=== PATIENT | female | born 1950 | race Caucasian/White ===

== ENCOUNTER 2016-08-18 03:23 | Emergency (ER) | payer OTHER, SELFPAY ==
[2016-08-18] MEDS ORDERED: Sodium Chloride 0.9% 1000 ML 1,000 ML IV STA (04:04)
--- NOTE | 2016-08-18 04:09 | ERPHSYRPT ---
- History of Present Illness Time Seen by Provider: 08/18/16 03:59 Historian: patient Exam Limitations: no limitations Patient Subjective Stated Complaint: pt states she is having sharp pain in epigastric area and to midback. Triage Nursing Assessment: pt alert and oriented. answers questions approp. pt ambulatory with steady gait noted. skin pink warm and dry. respirations nonlabored with lungs cta. abd soft with bowel sounds in all 4 quad. Physician History: PT ATE FRIED CHICKEN ABOUT 9.5 HOURS AGO AND 4.5 HOURS AGO STARTED WITH SHARP EPIGASTRIC PAIN RADIATING TO THE BACK WITH NAUSEA AND DIARRHEA X1. PT DENIES SHORTNESS OF AIR, FEVER, RASH. Allergies/Adverse Reactions: Penicillins Allergy (Verified 01/13/12 11:06) Home Medications: Albuterol Sulfate [Ventolin Hfa] 8 gm IH Q4HPRN PRN 08/18/16 [History] Aspirin 81 mg PO DAILY 08/18/16 [History] Citalopram Hydrobromide [ceLEXa] 40 mg PO DAILY 08/18/16 [History] Metformin HCl 500 mg [Glucophage 500 MG] 500 mg PO BID 08/18/16 [History] Metoprolol Succinate 100 mg PO DAILY 08/18/16 [History] Simvastatin 10 mg PO HS 08/18/16 [History] Spironolactone 25 mg [Aldactone 25 MG] 25 mg PO BID 08/18/16 [History] Hx Tetanus, Diphtheria Vaccination/Date Given: Yes Hx Influenza Vaccination/Date Given: Yes Hx Pneumococcal Vaccination/Date Given: No Immunizations Up to Date: Yes - Review of Systems Constitutional: No Fever Respiratory: No Dyspnea Abdominal/Gastrointestinal: Abdominal Pain, Nausea, Diarrhea, No Vomiting Musculoskeletal: Back Pain Skin: No Rash All Other Systems: Reviewed and Negative - Past Medical History Pertinent Past Medical History: Yes Cardiac History: Hypertension Endocrine Medical History: Diabetes Type II Other Medical History: INNER EAR, NARROW HEART VALVE - Past Surgical History Past Surgical History: Yes Female Surgical History: Section - Social History Smoking Status: Never smoker Exposure to second hand smoke: No Drug Use: none Patient Lives Alone: No - Female History Hx Last Menstrual Period: post - Nursing Vital Signs Nursing Vital Signs: Initial Vital Signs Temperature 97.7 F Temperature Source Oral Pulse Rate 60 Respiratory Rate 16 Blood Pressure [] 136/71 Pain Intensity 5 - Physical Exam General Appearance: alert Eye Exam: PERRL/EOMI Ears, Nose, Throat Exam: pharynx normal, dry mucous membranes Neck Exam: normal inspection Respiratory Exam: lungs clear Cardiovascular Exam: normal heart sounds Gastrointestinal/Abdomen Exam: soft, normal bowel sounds Back Exam: normal range of motion Extremity Exam: normal inspection, No pelvis stable Neurologic Exam: alert, cooperative Skin Exam: warm, dry SpO2 Interpretation: normal SpO2: 98 Oxygen Delivery: Room Air - Course Nursing assessment & vital signs reviewed: Yes EKG Interpreted by Me: RATE (63), Sinus Rhythm, NORMAL AXIS, NORMAL INTERVALS - CT Exams Abdomen/Pelvis CT Interpretation: Tele-radiologist Report (MILD NON-SPECIFIC ILEUS VERSUS ENTERITIS. COLONIC DIVERTICULOSIS WITHOUT CT EVIDENCE OF DIVERTICULITIS. ) Ordered Tests: Active Orders 24 hr Category Date Time Status [employer] STAT Care 08/18/16 04:04 Active EKG-ER Only STAT Care 08/18/16 04:04 Active IV Insertion STAT Care 08/18/16 04:04 Active ABDOMEN AND PELVIS W/0 CONTRAS [CT] Stat Exams 08/18/16 04:07 Taken AMYLASE Stat Lab 08/18/16 04:43 Completed CBC W DIFF Stat Lab 08/18/16 04:43 Completed CMP Stat Lab 08/18/16 04:43 Completed LIPASE Stat Lab 08/18/16 04:43 Completed MAGNESIUM Stat Lab 08/18/16 04:43 Completed TROPONIN Stat Lab 08/18/16 04:43 Completed UA W/ MICROSCOPIC Stat Lab 08/18/16 06:00 Completed Medication Summary Discontinued Medications Generic Name Dose Route Start Last Admin Trade Name Merrillq PRN Reason Stop Dose Admin Hydromorphone HCl 0.5 mg 08/18/16 04:34 08/18/16 04:43 Hydromorphone 1 Mg/Ml Ampule IV 08/18/16 04:35 0.5 mg STAT ONE Administration Hydromorphone HCl Confirm 08/18/16 04:39 Hydromorphone 1 Mg/Ml Ampule Administered 08/18/16 04:40 Dose 1 mg .ROUTE .STK-MED ONE Sodium Chloride 1,000 mls @ 999 mls/hr 08/18/16 04:04 08/18/16 04:43 Sodium Chloride 0.9% 1000 Ml IV 08/18/16 05:04 999 mls/hr .Q1H1M STA Administration Sodium Chloride Confirm 08/18/16 04:40 Sodium Chloride 0.9% 1000 Ml Administered 08/18/16 04:41 Dose 1,000 mls @ ud .ROUTE .STK-MED ONE Promethazine HCl 12.5 mg 08/18/16 04:34 08/18/16 04:43 Phenergan 25 Mg Inj IV 08/18/16 04:35 12.5 mg STAT ONE Administration Promethazine HCl Confirm 08/18/16 04:39 Phenergan 25 Mg Inj Administered 08/18/16 04:40 Dose 25 mg .ROUTE .STK-MED ONE Lab/Rad Data: Laboratory Result Diagrams 08/18/16 04:43 08/18/16 04:43 Laboratory Results 08/18/16 08/18/16 08/18/16 Range/Units 06:00 04:43 04:43 WBC (4.0-10.5) K/mm3 RBC (4.1-5.4) M/mm3 Hgb (12.0-16.0) gm/dl Hct (35-47) % MCV (78-100) fl MCH (26-32) pg MCHC (32-36) g/dl RDW (11.5-14.0) % Plt Count (150-450) K/mm3 MPV (6-9.5) fl Gran % (36.0-66.0) % Lymphocytes % (24.0-44.0) % Monocytes % (0.0-12.0) % Eosinophils % (0.00-5.0) % Basophils % (0.0-0.4) % Basophils # (0-0.4) Sodium 139 (136-145) mEq/L Potassium 4.1 (3.5-5.1) mEq/L Chloride 101 (98-107) mEq/L Carbon Dioxide 27.8 (21-32) mEq/L Anion Gap 14.2 (5-15) MEQ/L BUN 21 H (9-20) mg/dL Creatinine 1.08 (0.55-1.30) mg/dl Estimated GFR 54 ML/MIN Glucose 140 H (70-110) MG/DL Calcium 9.3 (8.5-10.1) mg/dL Magnesium 1.8 (1.8-2.4) mg/dL Total Bilirubin 0.4 (0.2-1.0) mg/dL AST 18 (15-37) U/L ALT 34 (12-78) U/L Alkaline Phosphatase 89 (46-116) U/L Troponin I < 0.017 (0.000-0.056) ng/ml Serum Total Protein 8.0 (6.4-8.2) gm/dL Albumin 4.1 (3.4-5.0) g/dL Amylase 44 (25-115) U/L Lipase 141 (73-393) U/L Ur Collection Type CLEAN CATCH Urine Color YELLOW (YELLOW) Urine Appearance CLEAR (CLEAR) Urine pH 7.0 (5-6) Ur Specific Thompsons 1.025 (1.005-1.025) Urine Protein 100 (Negative) Urine Glucose (UA) NEGATIVE (NEGATIVE) mg/dL Urine Ketones NEGATIVE (NEGATIVE) Urine Nitrite NEGATIVE (NEGATIVE) Urine Bilirubin NEGATIVE (NEGATIVE) Urine Urobilinogen 1 (0-1) mg/dL Urine WBC (Auto) SMALL (NEGATIVE) Urine RBC (Auto) NEGATIVE (0-5) Angelito/ul Specimen Received 0215 0600 08/18/16 Range/Units 04:43 WBC 10.2 (4.0-10.5) K/mm3 RBC 4.75 (4.1-5.4) M/mm3 Hgb 13.4 (12.0-16.0) gm/dl Hct 41.4 (35-47) % MCV 87.2 (78-100) fl MCH 28.2 (26-32) pg MCHC 32.4 (32-36) g/dl RDW 13.6 (11.5-14.0) % Plt Count 215 (150-450) K/mm3 MPV 11.4 H (6-9.5) fl Gran % 62.3 (36.0-66.0) % Lymphocytes % 28.1 (24.0-44.0) % Monocytes % 6.2 (0.0-12.0) % Eosinophils % 3.2 (0.00-5.0) % Basophils % 0.2 (0.0-0.4) % Basophils # 0.02 (0-0.4) Sodium (136-145) mEq/L Potassium (3.5-5.1) mEq/L Chloride (98-107) mEq/L Carbon Dioxide (21-32) mEq/L Anion Gap (5-15) MEQ/L BUN (9-20) mg/dL Creatinine (0.55-1.30) mg/dl Estimated GFR ML/MIN Glucose (70-110) MG/DL Calcium (8.5-10.1) mg/dL Magnesium (1.8-2.4) mg/dL Total Bilirubin (0.2-1.0) mg/dL AST (15-37) U/L ALT (12-78) U/L Alkaline Phosphatase (46-116) U/L Troponin I (0.000-0.056) ng/ml Serum Total Protein (6.4-8.2) gm/dL Albumin (3.4-5.0) g/dL Amylase (25-115) U/L Lipase (73-393) U/L Ur Collection Type Urine Color (YELLOW) Urine Appearance (CLEAR) Urine pH (5-6) Ur Specific Thompsons (1.005-1.025) Urine Protein (Negative) Urine Glucose (UA) (NEGATIVE) mg/dL Urine Ketones (NEGATIVE) Urine Nitrite (NEGATIVE) Urine Bilirubin (NEGATIVE) Urine Urobilinogen (0-1) mg/dL Urine WBC (Auto) (NEGATIVE) Urine RBC (Auto) (0-5) Angelito/ul Specimen Received - Departure Time of Disposition: 06:17 Departure Disposition: Home Clinical Impression: ABDOMINAL PAIN, VOMITING, DIARRHEA Condition: Fair Critical Care Time: No Referrals: ASIA SANTIAGO [Primary Care Provider] - Instructions: Abdominal Pain-Adult, Vomiting -- Adult, Diarrhea and Traveler's Diarrhea -- Adult Additional Instructions: FOLLOW UP WITH PRIVATE DOCTOR TOMORROW. RETURN TO [facility] AT 2:30 P.M. FOR GALLBLADDER ULTRASOUND. Prescriptions: Ondansetron [Zofran Odt] 4 mg PO Q4H PRN PRN #14 tab.rapdis PRN Reason: Nausea/Vomiting
[2016-08-18] MEDS ORDERED: Phenergan 25 MG INJ IV ONE (04:34)
[2016-08-18] MEDS ORDERED: Hydromorphone 1 mg/ml Ampule IV ONE ×2 (04:34→06:16)
[2016-08-18] MEDS ORDERED: Hydromorphone 1 mg/ml Ampule ONE ×2 (04:39→06:20)
[2016-08-18] MEDS ORDERED: Phenergan 25 MG INJ ONE (04:39)
[2016-08-18] MEDS ORDERED: Sodium Chloride 0.9% 1000 ML 1,000 ML ONE (04:40)
[2016-08-18 04:47] LABS: BASOPHIL % 0.2 % (0.0-0.4); Eosinophil % 3.2 % (0.00-5.0); Granulocytes % 62.3 % (36.0-66.0); Lymphocytes % 28.1 % (24.0-44.0); Mean Cell Volume 87.2 fl (78-100); Mean Corpuscular Hemoglobin 28.2 pg (26-32); Mean Platelet Volume 11.4 fl (6-9.5); Monocytes % 6.2 % (0.0-12.0); Platelet Count 215 K/mm3 (150-450); Red Blood Count 4.75 M/mm3 (4.1-5.4); Red Cell Distribution Width 13.6 % (11.5-14.0); White Blood Count 10.2 K/mm3 (4.0-10.5)
[2016-08-18 05:12] LABS: ALBUMIN 4.1 g/dL (3.4-5.0); ANION GAP 14.2 MEQ/L (5-15); BILIRUBIN,TOTAL 0.4 mg/dL (0.2-1.0); Carbon Dioxide 27.8 mEq/L (21-32); MAGNESIUM 1.8 mg/dL (1.8-2.4); Potassium 4.1 mEq/L (3.5-5.1)
[2016-08-18 06:11] LABS: Collection Type CLEAN CATCH
[2016-08-18 06:12] LABS: COMPLETE URINE MICROSCOPIC? YES
[2016-08-18] MEDS ORDERED: Zofran 4 MG/2 ML VIAL IV ONE (06:16)
[2016-08-18] MEDS ORDERED: Zofran 4 MG/2 ML VIAL ONE (06:20)
[2016-08-18 06:25] LABS: Bacteria MODERATE /HPF (NEGATIVE); Epithelial Cells MODERATE /HPF (FEW); WBC 25-50 /HPF (0-5)
[2016-08-18 06:32] VITALS: PULSE 64
[2016-08-18 06:56] VITALS: BP 136/56; O2SAT 94
--- NOTE | 2016-08-18 09:15 | XRAY ---
Indication: Upper abdominal pain. Nausea and vomiting. Multiple contiguous axial images obtained through the abdomen and pelvis without contrast as ordered. Comparison: None Lung bases demonstrates minimal fibrosis/scarring. No infiltrate, consolidation, or effusion. Heart is not enlarged. Small hiatal hernia. Noncontrasted stomach and bowel loops appear nonobstructed. Mild scattered colonic diverticulosis greatest in the sigmoid. No free fluid/air. Gallbladder is distended without gallstones or biliary distention. Remaining liver, pancreas, spleen, adrenal glands, kidneys, ureters, bladder, and uterus appear unremarkable for noncontrast exam. Minimal aortoiliac calcifications without AAA. 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 Osseous structures intact with minimal degenerative changes throughout spine. Impression: 1. No acute intra-abdominal/pelvic abnormalities on this noncontrast exam. 2. Distended gallbladder. Gallbladder sonogram may yield further information if there remains further clinical concern. 3. Incidental hiatal hernia, colonic diverticulosis, and splenic artery calcified aneurysm. Comment: Preliminary interpretation was made by [facility]. No discrepancy. CT DI 28.13
== END 2016-08-18 06:58 | disposition home or self-care (01) ==
LOC: ED 03:23
DX: R10.9 Unspecified abdominal pain (principal); R11.10 Vomiting, unspecified; R19.7 Diarrhea, unspecified; R10.13 Epigastric pain
CPT/HCPCS: 36000; 36415; 74176; 80053; 81000; 82150; 83690; 83735; 84484; 85025; 93005; 93041; 96360; 96374; 96375; 99284; J1170; J2405; J2550

== ENCOUNTER 2016-08-18 18:00 | Observation (INO) | payer OTHER ==
--- NOTE | 2016-08-18 18:34 | ERPHSYRPT ---
- History of Present Illness Historian: patient Exam Limitations: no limitations Patient Subjective Stated Complaint: abd pain Triage Nursing Assessment: seen and released this am. went home. 'i wanted pain medicine and dr bobo says he would give it to me but he only sent me home with nausea meds.' states has been vomiting and diarrhea today. c/o rt mid abd pain-- stabbing in nature. skin warm and dry. moist oral membranes. Timing/Duration: yesterday Activities at Onset: none Quality: sharpness Abdominal Pain Onset Location: RUQ Pain Radiation: no radiation Severity of Pain-Max: severe Severity of Pain-Current: severe Modifying Factors: Improves With: eating Associated Symptoms: nausea, vomiting Previous symptoms: same symptoms as today Hx Tetanus, Diphtheria Vaccination/Date Given: Yes Hx Influenza Vaccination/Date Given: No Hx Pneumococcal Vaccination/Date Given: No Immunizations Up to Date: Yes <LEXIE WHITLEY - Last Filed: 08/18/16 18:59> <LEXIE BOBO - Last Filed: 08/18/16 20:32> - History of Present Illness Time Seen by Provider: 08/18/16 18:34 Physician History: The patient is a 65-year-old female with her daughter complaining of intermittent abdominal pain for 6 months. She was seen in this ED last night for the same complaint. A CT scan of the abdomen and pelvis was done which I have reviewed. She was sent home last night with Zofran but no pain medicine prescriptions. She was scheduled for a gallbladder ultrasound today which did occur. A review of the ultrasound shows gallbladder sludge and tiny gallstones. There is borderline gallbladder wall thickening. The patient's abdominal pain has not subsided since last night. She did vomit after eating Jell-O this afternoon. She comes in wanting pain relief and specifically states she wants to be admitted for pain relief. Her past surgical history is unremarkable. Her past medical history is significant for high cholesterol, hypertension, and diabetes. (LEXIE WHITLEY) Allergies/Adverse Reactions: Penicillins Allergy (Verified 08/18/16 18:18) Home Medications: Albuterol Sulfate [Ventolin Hfa] 8 gm IH Q4HPRN PRN 08/18/16 [History] Aspirin 81 mg PO DAILY 08/18/16 [History] Citalopram Hydrobromide [ceLEXa] 40 mg PO DAILY 08/18/16 [History] Metformin HCl 500 mg [Glucophage 500 MG] 500 mg PO BID 08/18/16 [History] Metoprolol Succinate 100 mg PO DAILY 08/18/16 [History] Simvastatin 10 mg PO HS 08/18/16 [History] Spironolactone 25 mg [Aldactone 25 MG] 25 mg PO BID 08/18/16 [History] - Review of Systems Constitutional: No Fever, No Chills Eyes: No Symptoms Ears, Nose, & Throat: No Symptoms Respiratory: No Cough, No Dyspnea Cardiac: No Chest Pain, No Edema, No Syncope Abdominal/Gastrointestinal: Abdominal Pain, Nausea, Vomiting Genitourinary Symptoms: No Dysuria Musculoskeletal: No Back Pain, No Neck Pain Skin: No Symptoms, No Rash Neurological: No Dizziness, No Focal Weakness, No Sensory Changes Psychological: No Symptoms Endocrine: No Symptoms Hematologic/Lymphatic: No Symptoms Immunological/Allergic: No Symptoms All Other Systems: Reviewed and Negative <LEXIE WHITLEY - Last Filed: 08/18/16 18:59> - Past Medical History Pertinent Past Medical History: Yes Cardiac History: Hypertension Endocrine Medical History: Diabetes Type II Other Medical History: INNER EAR, NARROW HEART VALVE - Past Surgical History Past Surgical History: Yes Female Surgical History: Section - Social History Smoking Status: Never smoker Exposure to second hand smoke: No Drug Use: none Patient Lives Alone: No <LEXIE WHITLEY - Last Filed: 08/18/16 18:59> - Physical Exam General Appearance: moderate distress Eye Exam: PERRL/EOMI, eyes nml inspection Ears, Nose, Throat Exam: normal ENT inspection, pharynx normal, moist mucous membranes Neck Exam: normal inspection, non-tender, supple, full range of motion Respiratory Exam: normal breath sounds, lungs clear, No respiratory distress Cardiovascular Exam: regular rate/rhythm, normal heart sounds Gastrointestinal/Abdomen Exam: tenderness (RUQ) Pelvic Exam: not done Rectal Exam: not done Back Exam: normal inspection, normal range of motion, No CVA tenderness, No vertebral tenderness Extremity Exam: normal inspection, normal range of motion, pelvis stable Neurologic Exam: alert, oriented x 3, cooperative, normal mood/affect, nml cerebellar function, sensation nml, No motor deficits Skin Exam: normal color, warm, dry SpO2 Interpretation: normal SpO2: 96 Oxygen Delivery: Room Air <LEXIE WHITLEY - Last Filed: 08/18/16 18:59> <LEXIE WHITLEY - Last Filed: 08/18/16 18:59> - Progress Discussed with : Diana (WILL CONSULT - 2022), Steve (OBS - 2025) <LEXIE BOBO - Last Filed: 08/18/16 20:32> - Progress Progress Note: 08/18/16 20:[address] BOBO 2013: PERRL, EOMI, PHARYNX PINK, LUNGS CLEAR, NO CARDIAC RUB, MILD RUQ ABDOMINAL TENDERNESS, NO C/C/E OF EXTREMITIES, ALERT & COOPERATIVE. (LEXIE BOBO) <LEXIE WHITLEY - Last Filed: 08/18/16 18:59> - Departure Time of Disposition: 20:32 Departure Disposition: Observation Critical Care Time: No <LEXIE BOBO - Last Filed: 08/18/16 20:32> - Departure Clinical Impression: CHOLECYSTITIS/CHOLELITHIASIS, DM, HTN Condition: Fair Referrals: ASIA SANTIAGO [Primary Care Provider] -
[2016-08-18] MEDS ORDERED: Hydromorphone 1 mg/ml Ampule IV ONE (18:40)
[2016-08-18] MEDS ORDERED: Phenergan 25 MG INJ IV ONE (18:40)
[2016-08-18] MEDS ORDERED: Sodium Chloride 0.9% 1000 ML 1,000 ML IV SCH (18:45)
[2016-08-18] MEDS ORDERED: Sodium Chloride 0.9% 1000 ML 1,000 ML ONE (18:54)
[2016-08-18] MEDS ORDERED: Phenergan 25 MG INJ ONE (18:54)
[2016-08-18] MEDS ORDERED: Hydromorphone 1 mg/ml Ampule ONE (18:54)
[2016-08-18 19:18] LABS: BASOPHIL % 0.2 % (0.0-0.4); Eosinophil % 0.2 % (0.00-5.0); Granulocytes % 85.2 % (36.0-66.0); Lymphocytes % 9.1 % (24.0-44.0); Mean Corpuscular Hemoglobin 28.4 pg (26-32); Mean Platelet Volume 11.1 fl (6-9.5); Monocytes % 5.3 % (0.0-12.0); Platelet Count 207 K/mm3 (150-450); Red Blood Count 4.76 M/mm3 (4.1-5.4); Red Cell Distribution Width 13.7 % (11.5-14.0); White Blood Count 15.8 K/mm3 (4.0-10.5)
[2016-08-18 19:41] LABS: ALBUMIN 3.8 g/dL (3.4-5.0); ALKALINE PHOSPHATASE 95 U/L (46-116); ANION GAP 13.6 MEQ/L (5-15); BILIRUBIN,TOTAL 0.6 mg/dL (0.2-1.0); BLOOD UREA NITROGEN 18 mg/dL (9-20); CHLORIDE 98 mEq/L (98-107); Carbon Dioxide 28.6 mEq/L (21-32); Glucose 132 MG/DL (70-110); LIPASE 113 U/L (73-393); SGOT/AST 22 U/L (15-37); SGPT/ALT 41 U/L (12-78); SODIUM 136 mEq/L (136-145); Total Protein 7.9 gm/dL (6.4-8.2)
[2016-08-18] MEDS ORDERED: ROCEPHIN 1 Gm-D5w 50 ml Bag** 50 ML IV ONE ×2 (20:24→20:27)
[2016-08-18] MEDS ORDERED: Nitrostat 0.4 MG Tablet SL PRN (20:33)
[2016-08-18] MEDS ORDERED: Catapres 0.1 MG PO ONE (20:33)
[2016-08-18] MEDS ORDERED: Phenergan 25 MG INJ IV PRN (22:02)
[2016-08-18] MEDS ORDERED: Zofran 4 MG/2 ML VIAL IV PRN (22:02)
[2016-08-18] MEDS ORDERED: NovoLOG Insulin SQ PRN (22:02)
[2016-08-18] MEDS: DILAUDID 2 MG INJECTION IV PRN (22:41)
[2016-08-19 01:20] LABS: Bacteria MODERATE /HPF (NEGATIVE); COMPLETE URINE MICROSCOPIC? YES; Collection Type CATH; Epithelial Cells MANY /HPF (FEW); Mucus MANY /HPF (NEGATIVE)
[2016-08-19] MEDS: DILAUDID 2 MG INJECTION IV PRN ×3 (03:02→10:45)
[2016-08-19] MEDS: Sodium Chloride 0.9% 1000 ML 1,000 ML IV SCH (05:22)
[2016-08-19] MEDS ORDERED: ROCEPHIN 1 Gm-D5w 50 ml Bag** 50 ML IV SCH ×2 (06:00→22:00)
[2016-08-19 06:37] LABS: BASOPHIL % 0.1 % (0.0-0.4); Granulocytes % 84.7 % (36.0-66.0); Lymphocytes % 7.8 % (24.0-44.0); Mean Cell Volume 86.5 fl (78-100); Mean Corpuscular Hemoglobin 28.3 pg (26-32); Mean Platelet Volume 10.9 fl (6-9.5); Monocytes % 7.4 % (0.0-12.0); Platelet Count 204 K/mm3 (150-450); Red Blood Count 4.46 M/mm3 (4.1-5.4); Red Cell Distribution Width 13.7 % (11.5-14.0)
[2016-08-19 06:58] LABS: INR 1.22 (0.8-3.0); PROTIME 13.6 SECONDS (9.95-12.35)
[2016-08-19 07:01] LABS: PTT 30.1 SECONDS (25.3-37.0)
[2016-08-19 07:29] LABS: ALBUMIN 3.4 g/dL (3.4-5.0); ALKALINE PHOSPHATASE 85 U/L (46-116); ANION GAP 10.6 MEQ/L (5-15); BILIRUBIN,TOTAL 0.8 mg/dL (0.2-1.0); BLOOD UREA NITROGEN 14 mg/dL (9-20); CHLORIDE 99 mEq/L (98-107); Carbon Dioxide 29.4 mEq/L (21-32); Glucose 142 MG/DL (70-110); Potassium 3.9 mEq/L (3.5-5.1); SGOT/AST 22 U/L (15-37); SGPT/ALT 30 U/L (12-78); SODIUM 135 mEq/L (136-145); Total Protein 7.6 gm/dL (6.4-8.2)
[2016-08-19] MEDS: PROTONIX 40 MG IV IV SCH (08:22)
[2016-08-19] MEDS ORDERED: Ventolin Hfa MDI IH PRN (08:45)
[2016-08-19] MEDS ORDERED: ZOFRAN ODT 4 MG PO PRN (08:45)
[2016-08-19] MEDS ORDERED: PROVENTIL COMMON CANISTER IH PRN (08:50)
--- NOTE | 2016-08-19 08:57 | HP ---
CHIEF COMPLAINT: Right upper quadrant abdominal pain and nausea. HISTORY OF PRESENT ILLNESS: The patient is a 65 y/o WF patient who presented to the Emergency Room with complaints of abdominal pain in the right upper quadrant radiating to the back. The patient reports that she had abdominal pain a week ago with similar problems, but resolved. She had fried chicken for a Patricia[employer] Day dinner and the pain has not quit since that time. PAST MEDICAL HISTORY: Significant for hypertension, type 2 diabetes mellitus, and depression. HOME MEDICATIONS: Include albuterol, aspirin, citalopram, metformin, metoprolol, simvastatin, and spironolactone 25 mg bid. ALLERGIES: SHE REPORTS ALLERGIES TO PENICILLIN. PHYSICAL EXAMINATION: Reveals a moderately obese WF who appears to be in moderate distress due to the abdominal pain. Her vital signs currently show a temperature of 98.8, pulse 89, respiratory rate 16, BP 147/68, O2 saturation 94% on room air. HEENT: Normocephalic and atraumatic. Pupils equal, round, and reactive to light. Extraocular movements intact. Oropharynx was pink and moist. NECK: Supple without lymphadenopathy, thyromegaly, or JVD. CHEST: Clear to auscultation with good air movement bilaterally. HEART: Regular rate and rhythm without murmurs, rubs, or gallops. ABDOMEN: Tender particularly in the right upper quadrant. No guarding or rebound is present and no palpable masses are there. The patient has a Engel catheter draining dark, yellow urine. EXTREMITIES: Without clubbing, cyanosis, or edema. NEURO: The patient is A&O X 3. VITAL SIGNS ON ADMISSION: LABORATORY DATA: On admission, showed a WBC of 15,800, platelet count 207,000, Hgb 13.5. Lactic acid was 1.4. Metabolic panel showed a nonfasting sugar at 132, BUN 18, creatinine 0.65. Electrolytes were normal. Lipase was 113 which is normal. Liver enzymes were normal. UA showed specific gravity of 1.030, 2-5 WBC/high powered field. She had a gallbladder US which showed sludging, small stones, and thickening of the gallbladder wall concerning for cholecystitis. The patient had a rhythm strip that shows her to be in sinus rhythm. ASSESSMENT: 1. THE PATIENT WITH ACUTE CHOLECYSTITIS. THE PATIENT HAS BEEN GIVEN IV ROCEPHIN. SURGICAL CONSULTATION HAS BEEN OBTAINED. The patient will be covered with IV fluids and antibiotics while waiting on the surgical consultation.
[2016-08-19] MEDS: ceLEXa 20 MG PO SCH (09:16)
[2016-08-19] MEDS: CLARITIN 10 MG PO SCH (09:16)
[2016-08-19] MEDS: Aldactone 25 MG PO SCH ×2 (09:16→16:55)
[2016-08-19] MEDS: Toprol Xl 100 MG PO SCH (09:16)
[2016-08-19] MEDS: ECOTRIN 81 MG PO SCH (09:17)
[2016-08-19] MEDS ORDERED: NON-FORMULARY ITEM (Aspirin [Aspirin] 81 MG) PO SCH (10:00)
[2016-08-19] MEDS ORDERED: Levofloxacin 500MG/100ML D5W 100 ML IV SCH ×2 (10:00→10:15)
[2016-08-19] MEDS ORDERED: NON-FORMULARY ITEM (Citalopram Hydrobromide [Celexa] 40 MG) PO SCH (10:00)
[2016-08-19] MEDS ORDERED: Lactated Ringers 1,000 ML IV SCH (10:30)
[2016-08-19] MEDS ORDERED: Pepcid 20 MG VIAL IV SCH (10:30)
[2016-08-19] MEDS ORDERED: CLINDAMYCIN-D5W 900 MG/50 ML*** 50 ML IV SCH (10:30)
[2016-08-19] MEDS ORDERED: BICITRA 30 ML CUP PO SCH (10:30)
[2016-08-19] MEDS ORDERED: Sensorcaine 0.25% 10 ML ONE (13:22)
[2016-08-19] MEDS ORDERED: Lactated Ringers 1,000 ML IV ONE (13:22)
[2016-08-19] MEDS ORDERED: Xopenex 1.25 MG/0.5 ML UD NEBULE IH ONE ×2 (15:27→15:44)
[2016-08-19] MEDS ORDERED: Sodium Chloride 3 ML UD NEBULES IH ONE (15:44)
[2016-08-19] MEDS ORDERED: OFIRMEV 100 ML IV ONE (15:46)
[2016-08-19] MEDS ORDERED: SUBLIMAZE 250 MCG/5 ML IJ ONE (15:46)
[2016-08-19] MEDS ORDERED: Zofran 4 MG/2 ML VIAL IV ONE (15:46)
[2016-08-19] MEDS ORDERED: DIPRIVAN 200 MG/20 ML IV ONE (15:46)
[2016-08-19] MEDS ORDERED: Zemuron 100 MG/10 ML IJ ONE (15:46)
[2016-08-19] MEDS ORDERED: BRIDION 200MG/2ML IV ONE (15:46)
[2016-08-19] MEDS ORDERED: Versed 2 MG/2 ML Injection IV ONE (15:46)
[2016-08-19] MEDS ORDERED: LIDOCAINE HCL 2% 100 MG/5 ML IJ ONE (15:46)
[2016-08-19] MEDS ORDERED: Quelicin Fliptop 200 MG/10 ML IJ ONE (15:46)
[2016-08-19] MEDS ORDERED: Morphine PCA 1 MG/ML 30 ML IV PRN (16:33)
[2016-08-19] MEDS ORDERED: FEVERALL 650 MG RC PRN (16:36)
[2016-08-19] MEDS ORDERED: TYLENOL 325 MG PO PRN (16:36)
[2016-08-19] MEDS ORDERED: Zofran 4 MG/2 ML VIAL IVIM PRN (16:39)
[2016-08-19] MEDS: D5W/0.45NS W/ 20mEq KCl 1000 ML 1,000 ML IV SCH (16:55)
[2016-08-19] MEDS: MEFOXIN 1 Gm/ D5W 50 Ml** 50 ML IV SCH (17:00)
[2016-08-19] MEDS: Zocor 10MG PO SCH (22:12)
[2016-08-20] MEDS: MEFOXIN 1 Gm/ D5W 50 Ml** 50 ML IV SCH ×5 (00:47→23:55)
[2016-08-20] MEDS: D5W/0.45NS W/ 20mEq KCl 1000 ML 1,000 ML IV SCH ×2 (05:43→20:05)
[2016-08-20 06:29] LABS: Mean Cell Volume 88.4 fl (78-100); Mean Corpuscular Hemoglobin 27.9 pg (26-32); Mean Platelet Volume 11.1 fl (6-9.5); Platelet Count 187 K/mm3 (150-450); Red Blood Count 3.97 M/mm3 (4.1-5.4); Red Cell Distribution Width 14.1 % (11.5-14.0)
[2016-08-20 06:47] LABS: ALBUMIN 2.8 g/dL (3.4-5.0); ALKALINE PHOSPHATASE 101 U/L (46-116); ANION GAP 10.9 MEQ/L (5-15); BILIRUBIN,TOTAL 1.2 mg/dL (0.2-1.0); BLOOD UREA NITROGEN 11 mg/dL (9-20); CHLORIDE 104 mEq/L (98-107); Carbon Dioxide 27.7 mEq/L (21-32); Glucose 125 MG/DL (70-110); Potassium 3.8 mEq/L (3.5-5.1); SGOT/AST 44 U/L (15-37); SGPT/ALT 61 U/L (12-78); SODIUM 139 mEq/L (136-145); Total Protein 6.9 gm/dL (6.4-8.2)
--- NOTE | 2016-08-20 08:14 | OP ---
SURGERY DATE: 08/19/16 SURGERY TIME: 1342 PREOPERATIVE DIAGNOSIS: 1. ACUTE CHOLECYSTITIS/CHOLELITHIASIS. POSTOPERATIVE DIAGNOSIS: 1. GANGRENOUS CHOLECYSTITIS. PROCEDURE: 1. Difficult laparoscopic cholecystectomy. SURGEON: Rajesh Lin M.D. ANESTHESIA: General by Jose Hawkins CRNA. DRAINS: One. CONDITION: Stable. INDICATION: 65 y/o with upper abdominal pain. US positive. Looked actually toxic in nature. Seen and examined and procedure discussed with her. She wished to proceed. OPERATIVE PROCEDURE: Taken to surgery. General anesthetic. Routine prep and drape. Veress needle inserted. There were adhesions, but the port was below the transverse colon omentum. It was able to be teased through the thin spotted omentum into the upper abdomen. The rest of the case was conducted there and there was no suggestion of any issue below there. There was clearly a perforated gangrenous gallbladder with several ounces of nasty bilious material in the right gutter which was suctioned and irrigated. The gallbladder was further decompressed. It was elevated upward. Infundibulum dissected. It was able to be taken with 2.5 vascular cartridge. Cystic artery triply Ligaclipped. Gallbladder rolled out of gallbladder fossa. Gallbladder delivered through the upper abdominal port. There was a large stone. It was necessary to widen the incision there. [address] was laid in place. Generous irrigation and suction returned dry. The fascial closed deliberately from externally with suture of #0 PDS. Subcutaneous tissue irrigated. Skin closed with georgina. Sterile dressing applied. Patient tolerated the procedure satisfactory. The procedure was difficult and took approximately 4 times the normal time.
[2016-08-20] MEDS ORDERED: MORPHINE SULFATE 4 MG INJ IV PRN (08:31)
[2016-08-20] MEDS: ENOXAPARIN SODIUM SQ SCH (09:56)
[2016-08-20] MEDS: ceLEXa 20 MG PO SCH (09:56)
[2016-08-20] MEDS: PROTONIX 40 MG IV IV SCH (09:56)
[2016-08-20] MEDS: Aldactone 25 MG PO SCH ×2 (09:56→17:43)
[2016-08-20] MEDS: Toprol Xl 100 MG PO SCH (09:57)
[2016-08-20] MEDS: ECOTRIN 81 MG PO SCH (09:57)
[2016-08-20] MEDS: CLARITIN 10 MG PO SCH (09:57)
[2016-08-20] MEDS: Sodium Chloride 0.9% 1000 ML 1,000 ML IV SCH (11:40)
[2016-08-20] MEDS: NORCO 5/325 MG PO PRN (21:29)
[2016-08-20] MEDS: Zocor 10MG PO SCH (21:30)
[2016-08-21] MEDS: MEFOXIN 1 Gm/ D5W 50 Ml** 50 ML IV SCH (05:24)
[2016-08-21 05:25] LABS: Mean Cell Volume 88.6 fl (78-100); Mean Platelet Volume 10.9 fl (6-9.5); Platelet Count 193 K/mm3 (150-450); Red Blood Count 3.78 M/mm3 (4.1-5.4); Red Cell Distribution Width 14.2 % (11.5-14.0); White Blood Count 10.6 K/mm3 (4.0-10.5)
[2016-08-21 05:42] LABS: ALBUMIN 2.8 g/dL (3.4-5.0); ALKALINE PHOSPHATASE 179 U/L (46-116); ANION GAP 11.8 MEQ/L (5-15); BILIRUBIN,TOTAL 0.5 mg/dL (0.2-1.0); BLOOD UREA NITROGEN 9 mg/dL (9-20); CHLORIDE 102 mEq/L (98-107); Carbon Dioxide 26.3 mEq/L (21-32); Glucose 126 MG/DL (70-110); Potassium 3.8 mEq/L (3.5-5.1); SGOT/AST 92 U/L (15-37); SGPT/ALT 145 U/L (12-78); SODIUM 136 mEq/L (136-145); Total Protein 6.9 gm/dL (6.4-8.2)
[2016-08-21] MEDS: ECOTRIN 81 MG PO SCH (08:39)
[2016-08-21] MEDS: ceLEXa 20 MG PO SCH (08:39)
[2016-08-21] MEDS: CLARITIN 10 MG PO SCH (08:39)
[2016-08-21] MEDS: ENOXAPARIN SODIUM SQ SCH (08:39)
[2016-08-21] MEDS: Aldactone 25 MG PO SCH (08:40)
[2016-08-21] MEDS: PROTONIX 40 MG IV IV SCH (08:40)
[2016-08-21] MEDS: Toprol Xl 100 MG PO SCH (08:40)
--- NOTE | 2016-08-21 09:25 | PCM.DS ---
Discharge Summary Date of Admission: 08/18/16 21:54 Date of Discharge: 08/21/2016 Admitting Physician: ASIA SANTIAGO Primary Care Provider: ASIA SANTIAGO Allergies Allergies Penicillins Allergy (Verified 08/18/16 18:18) Hospital Summary - Hospital Course Hospital Course: Ms. Gee presented and was found to have gangrenous acute cholecystitis with perforation. She was taken to OR and had complicated cholecystectomy by Dr. Lin on 08/19/16. She had EDEN drain left that the drainage improved from with only slight serosangenous drainage at time of discharge it was removed. She was on ceftriaxone and her wbc was trending down she was afebrile and her pain was improving. She was tolerating po well and ambulating on her own. She was discharged with augmentin and norco by Dr. Lin to follow up in the office in 10 days. - Vitals & Intake/Output Vital Signs: Vital Signs Temperature 97.8 F 08/21/16 07:04 Pulse Rate 74 08/21/16 07:04 Respiratory Rate 20 08/21/16 07:04 Blood Pressure 138/65 08/21/16 07:04 O2 Sat by Pulse Oximetry 97 08/21/16 07:04 Intake & Output: Intake & Output 08/18/16 08/19/16 08/20/16 08/21/16 11:59 11:59 11:59 11:59 Intake Total 515 2691 2546 Output Total 400 2610 55 Balance 334 44 8639 Weight 104.78 kg 107.547 kg 107.683 kg - Lab Result Diagrams: 08/21/16 05:00 08/21/16 05:00 Lab Results-Last 24 Hrs: Accuchecks Date 08/20/16 Date 08/20/16 Date 08/20/16 Time 22:00 Time 16:30 Time 11:30 Accucheck Value: 138 Accucheck Value: 106 Accucheck Value: 112 Accucheck Value: 123 Lab Results-Last 24 Hours 08/21/16 08/21/16 Range/Units 05:00 05:00 WBC 10.6 H (4.0-10.5) K/mm3 RBC 3.78 L (4.1-5.4) M/mm3 Hgb 10.6 L (12.0-16.0) gm/dl Hct 33.5 L (35-47) % MCV 88.6 (78-100) fl MCH 28.0 (26-32) pg MCHC 31.6 L (32-36) g/dl RDW 14.2 H (11.5-14.0) % Plt Count 193 (150-450) K/mm3 MPV 10.9 H (6-9.5) fl Sodium 136 (136-145) mEq/L Potassium 3.8 (3.5-5.1) mEq/L Chloride 102 (98-107) mEq/L Carbon Dioxide 26.3 (21-32) mEq/L Anion Gap 11.8 (5-15) MEQ/L BUN 9 (9-20) mg/dL Creatinine 0.69 (0.55-1.30) mg/dl Estimated GFR > 60 ML/MIN Glucose 126 H (70-110) MG/DL Calcium 8.4 L (8.5-10.1) mg/dL Total Bilirubin 0.5 (0.2-1.0) mg/dL AST 92 H (15-37) U/L ALT 145 H (12-78) U/L Alkaline Phosphatase 179 H (46-116) U/L Serum Total Protein 6.9 (6.4-8.2) gm/dL Albumin 2.8 L (3.4-5.0) g/dL Micro Results-Entire Visit: Microbiology 08/19/16 00:30 Urine Culture - Final Catherized NO GROWTH Accuchecks Date 08/20/16 Date 08/20/16 Date 08/20/16 Time 22:00 Time 16:30 Time 11:30 Accucheck Value: 138 Accucheck Value: 106 Accucheck Value: 112 Accucheck Value: 123 - Procedures and Test Procedures and Tests throughout Hospitalization: Therapy Orders & Screens 08/19/16 08:23 EKG ROUTINE Comment: Diagnosis: cholecystitis, cholelithiasis 08/19/16 15:27 Respiratory Nebulizer STAT Comment: Diagnosis: cholecystitis, cholelithiasis 08/19/16 15:56 Oxygen OXYMASK-LPM 2% Comment: PRN Diagnosis: cholecystitis, cholelithiasis 08/19/16 17:00 Incentive Spirometry Assessmen UD Comment: Diagnosis: cholecystitis, cholelithiasis Discharge Exam General Appearance: no apparent distress, obese Neurologic Exam: alert, oriented x 3, cooperative Skin Exam: warm, dry Eye Exam: No scleral icterus, No pale conjunctivae Ears, Nose, Throat Exam: moist mucous membranes Neck Exam: normal inspection, non-tender, supple Respiratory Exam: normal breath sounds, lungs clear, No respiratory distress Cardiovascular Exam: regular rate/rhythm, normal heart sounds Gastrointestinal/Abdomen Exam: soft, tenderness (diffuse mild EDEN with clear/ pink drainage) Extremity Exam: normal inspection, No chan's sign, No pedal edema Back Exam: No CVA tenderness Final Diagnosis/Problem List - Final Discharge Diagnosis/Problem (1) Acute gangrenous cholecystitis Current Visit: Yes Status: Acute (2) Type 2 diabetes mellitus Current Visit: Yes Status: Chronic (3) Essential hypertension Current Visit: Yes Status: Chronic (4) Anemia Current Visit: Yes Status: Acute - Discharge Disposition: Home, Self-Care Condition: Fair Prescriptions: New Amoxicillin/Potassium Clav [Augmentin 875-125 Tablet] 875 mg PO BID #14 tablet Hydrocodone Bit/Acetaminophen [Marlin 5-325 Tablet] 1 each PO Q4H #0 tablet No Action RX: Simvastatin 10 mg PO HS RX: Metoprolol Succinate 100 mg PO DAILY RX: Aspirin 81 mg PO DAILY Metformin HCl 500 mg [Glucophage 500 MG] 500 mg PO BID Citalopram Hydrobromide [ceLEXa] 40 mg PO DAILY Spironolactone 25 mg [Aldactone 25 MG] 25 mg PO BID Albuterol Sulfate [Ventolin Hfa] 8 gm IH Q4HPRN PRN PRN Reason: Shortness Of Breath/Wheezing Ondansetron [Zofran Odt] 4 mg PO Q4H PRN PRN #14 tab.rapdis PRN Reason: Nausea/Vomiting Loratadine 10 mg [Claritin 10 mg] 10 mg PO DAILY Meclizine HCl 25 mg [Antivert 25 mg] 1 tab PO TID PRN PRN PRN Reason: dizziness RX: Ibuprofen 200 mg [Motrin 200 mg] 200 mg PO Q4H PRN PRN PRN Reason: Pain Instructions: Cholecystectomy Follow up with: ASIA SANTIAGO [Primary Care Provider] - Call for Appointment LEOBARDO LIN [ACTIVE STAFF] - Call for Appointment Forms: Patient Portal Information
[2016-08-21] MEDS: NORCO 5/325 MG PO PRN (09:28)
[2016-08-21 11:06] VITALS: BP 126/68; PULSE 69; O2SAT 96
== END 2016-08-21 12:35 | disposition home or self-care (01) ==
LOC: ED 18:00 → MED SURG 21:54
PROVIDERS: ADMIT Family Medicine; ATTEND Family Medicine
PROC: 0FT44ZZ Resection of Gallbladder, Percutaneous Endoscopic Approach (ICD-10-PCS; principal; 2016-08-19)
DX: K80.00 Calculus of gallbladder with acute cholecystitis without obstruction (principal); E11.9 Type 2 diabetes mellitus without complications; Z79.4 Long term (current) use of insulin; I10 Essential (primary) hypertension; D64.9 Anemia, unspecified; F32.9 Major depressive disorder, single episode, unspecified; Z79.899 Other long term (current) drug therapy
CPT/HCPCS: 00790; 36000; 36415; 80053; 81000; 82962; 83036; 83605; 83690; 85025; 85027; 85610; 85730; 87040; 87086; 88304; 93005; 93268; 94640; 94760; 96360; 96361; 96365; 96374; 96375; 99140; 99284; 99285; G0378; J0330; J0694; J0696; J1170; J1650; J1956; J2250; J2270; J2405; J2550; J2704; J3010

== ENCOUNTER 2017-11-01 06:03 | Day surgery (SDC) | payer MEDICARE ==
[2017-11-01] MEDS ORDERED: DIPRIVAN 200 MG/20 ML IV ONE ×2 (06:04)
[2017-11-01] MEDS ORDERED: Ketamine HCl 50 MG/ML IV ONE (06:04)
[2017-11-01] MEDS ORDERED: Lactated Ringers 1,000 ML IV SCH (07:00)
[2017-11-01 08:48] VITALS: BP 136/98; PULSE 86; O2SAT 98
--- NOTE | 2017-11-01 08:51 | OP ---
SURGERY DATE/TIME: 11/01/2017 0727 PREOPERATIVE DIAGNOSIS: Screening exam. POSTOPERATIVE DIAGNOSIS: Diverticulosis moderate to severe. PROCEDURE: Colonoscopy. SURGEON: Dr. Escobar. ANESTHESIA: MAC. Medications given by anesthesia department. HISTORY: The patient is a 67 year-old white female presenting now for screening colonoscopy. She was appraised of the risks of the procedure including the risk of perforation, phlebitis, untoward reaction to medication, bleeding and missed lesions. The patient verbalized her understanding and desired to have the procedure performed. DESCRIPTION OF PROCEDURE: The patient was given the medications by the anesthesia department. She had continuous pulse oximetry, ECG monitoring, intermittent blood pressure monitoring and tidal CO2 monitoring during the examination. She was placed in the left lateral decubitus position. A digital rectal examination was performed and revealed normal anal sphincter tone and no masses. The flexible Olympus pediatric colonoscope was used to intubate the rectum. A view of the colon was developed sequentially to the cecum. Upon insertion and withdrawal, including a retroflex view in the rectum, was noted mild to severe sigmoid diverticulosis otherwise no mucosal lesions were encountered. The scope was removed from the patient who tolerated the procedure well and was sent back to OP recovery in good condition. The prep was noted to be fair.
== END 2017-11-01 08:55 | disposition home or self-care (01) ==
LOC: SDC 06:03
PROVIDERS: ATTEND Family Medicine
DX: Z12.11 Encounter for screening for malignant neoplasm of colon (principal); K57.90 Diverticulosis of intestine, part unspecified, without perforation or abscess without bleeding
CPT/HCPCS: J2704

== ENCOUNTER 2022-10-12 06:34 | Day surgery (SDC) | payer MEDICARE ==
[2022-10-12] MEDS ORDERED: Lactated Ringers 1,000 ML IV SCH (07:00)
[2022-10-12] MEDS ORDERED: CLINDAMYCIN-D5W 900 MG/50 ML*** 900 MG/50 ML BAG IV SCH (07:00)
[2022-10-12] MEDS ORDERED: Xopenex 1.25 MG/0.5 ML UD NEBULE IH ONE (07:01)
[2022-10-12] MEDS ORDERED: Sodium Chloride 3 ML UD NEBULES IH ONE ×2 (07:02→07:33)
[2022-10-12] MEDS ORDERED: Versed 2 MG/2 ML Injection ONE (09:09)
[2022-10-12] MEDS ORDERED: DIPRIVAN 200 MG/20 ML IV ONE (09:09)
[2022-10-12] MEDS ORDERED: Decadron 4 MG INJ ONE (09:10)
[2022-10-12] MEDS ORDERED: Zofran 4 MG/2 ML VIAL ONE (09:10)
[2022-10-12] MEDS ORDERED: Xylocaine-Mpf 2% 5 Ml Vial ONE (09:10)
[2022-10-12] MEDS ORDERED: SUBLIMAZE 100 MCG/2 ML ONE (09:12)
[2022-10-12] MEDS ORDERED: ROBINUL ONE (09:30)
[2022-10-12 10:30] VITALS: O2SAT 96
[2022-10-12 10:52] VITALS: BP 158/70; PULSE 63
--- NOTE | 2022-10-13 14:27 | OP ---
SURGERY DATE/TIME: 10/12/2022 0914 PREOPERATIVE DIAGNOSIS: Postmenopausal bleeding. POSTOPERATIVE DIAGNOSIS: Postmenopausal bleeding. PROCEDURE: Hysteroscopy D&C. SURGEON: Reynaldo Proctor D.O. TERRAZZO MECHANIC HELPER: Daniela Tony surgical device sales representative. ANESTHESIA: General. ESTIMATED BLOOD LOSS: Minimal. COMPLICATIONS: None. INDICATIONS: The risks, benefits, indications and alternatives of the procedure were reviewed with the patient prior to the procedure. The patient understood the risk of infection, bleeding, bowel injury, bladder injury, ureteral injury, uterine perforation and pelvic infection associated with the surgery however desires to have this surgery as a possible means to alleviate her current medical condition. DESCRIPTION OF PROCEDURE AND FINDINGS: At this point the patient is taken to the operating room, given general sedation, placed in the dorsal lithotomy position, prepped and draped in the usual sterile fashion. A weighted speculum is then placed in the patient's vagina and the anterior lip of the cervix was grasped with a single tooth tenaculum. Endocervical dilators were advanced through the endocervical canal as a means to dilate the cervix. The 5 mm hysteroscope was then placed through the endocervical region where visualization of the uterine lining appeared to be within normal limits with no gross abnormalities. From this point, the hysteroscope was removed and curette was then placed into the fundus of the uterus and curettage was performed in all quadrants of the uterus retrieving a mild to moderate amount of tissue. From this point, hemostasis was obtained. All instruments were then removed from the patient's vaginal region. The patient was then taken out of the dorsal lithotomy position, taken out of anesthesia and was then taken to the recovery room in stable condition. All instruments and laps were accounted for x2.
== END 2022-10-12 10:57 | disposition home or self-care (01) ==
LOC: SDC 06:34
PROVIDERS: ATTEND Obstetrics & Gynecology
DX: N95.0 Postmenopausal bleeding (principal); E11.9 Type 2 diabetes mellitus without complications
CPT/HCPCS: 82947; 94640; 99100; J1100; J2250; J2405; J2704; J3010; J7614; A9270-GY

== ENCOUNTER 2023-01-13 19:20 | Emergency (ER) | payer MEDICARE ==
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
[2023-01-13 20:55] VITALS: O2SAT 97
[2023-01-13 21:39] VITALS: BP 137/70; PULSE 88
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
== END 2023-01-13 22:11 | disposition home or self-care (01) ==
LOC: ED 19:20
DX: S30.811A Abrasion of abdominal wall, initial encounter (principal); S20.219A Contusion of unspecified front wall of thorax, initial encounter; S70.02XA Contusion of left hip, initial encounter; S90.02XA Contusion of left ankle, initial encounter; V87.7XXA Person injured in collision between other specified motor vehicles (traffic), initial encounter; E78.5 Hyperlipidemia, unspecified; E11.9 Type 2 diabetes mellitus without complications; I10 Essential (primary) hypertension; Z79.85 Long-term (current) use of injectable non-insulin antidiabetic drugs; Z79.899 Other long term (current) drug therapy
CPT/HCPCS: 71250; 73610; 74176; 93005; 99285

== ENCOUNTER 2023-02-18 18:45 | Emergency (ER) | payer MEDICARE ==
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
[2023-02-18 19:36] VITALS: BP 160/69; PULSE 65; RESP 18; TEMP 98.2
[2023-02-18] MEDS ORDERED: PEROXIDE 3% ONE (20:14)
== END 2023-02-18 22:46 | disposition left against medical advice (07) ==
LOC: ED 18:45
DX: H61.23 Impacted cerumen, bilateral (principal); I10 Essential (primary) hypertension; E78.5 Hyperlipidemia, unspecified; E11.9 Type 2 diabetes mellitus without complications; Z79.85 Long-term (current) use of injectable non-insulin antidiabetic drugs; Z79.899 Other long term (current) drug therapy
CPT/HCPCS: 99281; A9270-GY

== ENCOUNTER 2023-06-27 23:08 | Emergency (ER) | payer MEDICARE ==
[2023-06-27 23:33] VITALS: TEMP 99.7
[2023-06-27] MEDS ORDERED: Zofran 4 MG/2 ML VIAL IV ONE (23:38)
[2023-06-27] MEDS ORDERED: Sodium Chloride 0.9% 500 ML 500 ML IV ONE ×2 (23:39→23:46)
[2023-06-27] MEDS ORDERED: Zofran 4 MG/2 ML VIAL ONE (23:46)
--- NOTE | 2023-06-27 23:48 | ERPHSYRPT ---
- History of Present Illness Time Seen by Provider: 06/27/23 23:14 Source: patient Exam Limitations: no limitations Patient Subjective Stated Complaint: pt reports today while at her son's she started persistenly coughing and became really hot and went outside and vomited up thick mucous. pt reports nausea, dizziness, runny nose and eyes since that time. pt reports she also took her ozempic injection today and believes it could have made her sick. Triage Nursing Assessment: pt is aox3, pt ambulatory to trt room with steady gait, pt is very talkative, afebrile, resps easy and non labored, lung sounds are diminished with some scattered expiratory wheezes, radial pulses strong and equal, cap refill < 3 seconds, pt abd soft non tender, bowel sounds normoactive, pt cheeks flushed, warm dry. Physician History: 72 years old female with history of peripheral vertigo, hypertension, diabetes mellitus presented in the ER with complaints of cough congestion, watery eyes since she woke up this morning. Patient reports she was earlier having supper, felt thick mucus and Coughing repeatedly to make sure she could spit it out. Later on she got nauseated and vomited couple of times. No abdominal pain. Patient does report having dizziness earlier and took meclizine x 2 which is improved. Denies any chest pain palpitations or shortness of breath. Patient denies any numbness tingling or focal weakness. Patient reports she wanted to make sure she does not have COVID flu or RSV before she goes back to work [facility]. No fever or chills reported. Does have a positive sick contact. Allergies/Adverse Reactions: Penicillins Allergy (Unknown, Verified 06/27/23 23:33) Home Medications: Meclizine HCl 25 mg [Antivert 25 mg] 1 tab PO TID PRN PRN 08/18/16 [History] Metoprolol Succinate 100 mg PO QPM 08/18/16 [History] Spironolactone 25 mg [Aldactone 25 MG] 25 mg PO BID 08/18/16 [History] Albuterol Sulfate 2.5 mg IH QID PRN PRN 10/01/22 [History] Albuterol Sulfate [Proair Respiclick] 90 mcg IH Q4HPRN PRN 10/01/22 [History] Escitalopram Oxalate 20 mg PO DAILY 10/01/22 [History] Semaglutide [Ozempic] 0.25 mg SQ WEEKLY 10/01/22 [History] Aspirin EC 81 mg [Ecotrin 81 mg] 1 tab PO DAILY 10/26/22 [History] Budesonide/Formoterol Fumarate [Budesonide-Formoterol 80-4.5] 1 puff IH DAILY 10/26/22 [History] Diazepam [Valium] 1 tab PO TID PRN 10/26/22 [History] Hx Tetanus, Diphtheria Vaccination/Date Given: No Hx Influenza Vaccination/Date Given: Yes Hx Pneumococcal Vaccination/Date Given: Yes Immunizations Up to Date: Yes Travel Risk - International Travel Have you traveled outside of the country in past 3 weeks: No - Coronavirus Screening Are you exhibiting any of the following symptoms?: Yes Symptoms: Cough: New Onset, Vomiting/Diarrhea, Headaches/Body Aches/Fatigue - Vaccine Status Have you recieved a Covid-19 vaccination: Yes Pilot Supervisor: Unknown - Vaccination Dates Date of 2cond Vaccination (if applicable): 10/08/20 Dates if Unknown: unk - Review of Systems Constitutional: Fatigue, Weakness Eyes: No Symptoms Ears, Nose, & Throat: Nose Congestion, Throat Pain Respiratory: Cough, No Dyspnea Cardiac: No Symptoms Abdominal/Gastrointestinal: Nausea, Vomiting Genitourinary Symptoms: No Symptoms Musculoskeletal: No Symptoms Skin: No Symptoms Neurological: Dizziness Psychological: Anxiety Endocrine: No Symptoms Hematologic/Lymphatic: No Symptoms Immunological/Allergic: No Symptoms - Past Medical History Pertinent Past Medical History: Yes Neurological History: No Pertinent History ENT History: No Pertinent History Cardiac History: Hypertension, Other Respiratory History: Asthma Endocrine Medical History: Diabetes Type II Musculoskeletal History: Arthritis GI Medical History: Gallbladder Disease History: No Pertinent History Psycho-Social History: Depression, Anxiety Female Reproductive Disorders: No Pertinent History Other Medical History: INNER EAR, 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 - Past Surgical History Past Surgical History: Yes Neuro Surgical History: No Pertinent History Cardiac: Cardiac Catheterization Respiratory: No Pertinent History Gastrointestinal: Cholecystectomy Genitourinary: No Pertinent History Musculoskeletal: No Pertinent History Female Surgical History: Section, Dilation & Curettage Other Surgical History: uterine biopsy - Social History Smoking Status: Never smoker Exposure to second hand smoke: No Drug Use: none Patient Lives Alone: Yes - Nursing Vital Signs Nursing Vital Signs: Initial Vital Signs Temperature 99.7 F 06/27/23 23:22 Pulse Rate 87 06/27/23 23:22 Respiratory Rate 20 06/27/23 23:22 Blood Pressure 182/72 06/27/23 23:22 O2 Sat by Pulse Oximetry 97 06/27/23 23:22 Pain Scale Pain Intensity 0 - Physical Exam General Appearance: no apparent distress, alert Eye Exam: PERRL/EOMI Ears, Nose, Throat Exam: moist mucous membranes, pharyngeal erythema Neck Exam: normal inspection, non-tender, supple, full range of motion Respiratory Exam: normal breath sounds, lungs clear Cardiovascular Exam: regular rate/rhythm, normal heart sounds Gastrointestinal/Abdomen Exam: soft, normal bowel sounds, No tenderness Extremity Exam: normal inspection, normal range of motion Neurologic Exam: alert, oriented x 3, cooperative, ton container filler 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 tested, nml cerebellar function, nml station & gait, sensation nml, motor deficits, No normal mood/affect Skin Exam: normal color SpO2 Interpretation: normal SpO2: 95 O2 Delivery: Room Air - Course EKG Interpreted by Me: RATE ([id number]), Sinus Rhythm, NORMAL AXIS, NORMAL INTERVALS, Non-specific ST Changes Ordered Tests: Active Orders 24 hr Category Date Time Status EKG-ER Only STAT Care 06/27/23 23:37 Active IV Insertion STAT Care 06/27/23 23:37 Active CHEST 1 VIEW (PORTABLE) Stat Exams 06/27/23 23:38 Taken CBC W DIFF Stat Lab 06/27/23 23:44 Completed CMP Stat Lab 06/27/23 23:44 Completed LIPASE Stat Lab 06/28/23 00:00 Completed MAGNESIUM Stat Lab 06/27/23 23:44 Completed NT PRO BNPII Stat Lab 06/27/23 23:44 Completed TROPONIN Q4H Lab 06/27/23 23:44 Completed TROPONIN Q4H Lab 06/28/23 03:45 Ordered TROPONIN Q4H Lab 06/28/23 07:45 Ordered UA W/RFX UR CULTURE Stat Lab 06/27/23 23:38 Ordered Medication Summary Discontinued Medications Generic Name Dose Route Start Last Admin Trade Name Freq PRN Reason Stop Dose Admin Sodium Chloride 500 mls @ 500 mls/hr 06/27/23 23:39 06/28/23 00:59 Sodium Chloride 0.9% 500 Ml IV 06/28/23 00:38 Infused .Q1H ONE Infusion Sodium Chloride Confirm 06/27/23 23:46 Sodium Chloride 0.9% 500 Ml Administered 06/27/23 23:47 Dose 500 mls @ ud IV .STK-MED ONE Magnesium Sulfate/Dextrose 100 mls @ 200 mls/hr 06/28/23 00:49 06/28/23 00:56 Magnesium 1 Gm / 100 Ml D5w IV 06/28/23 01:18 200 mls/hr STAT ONE Administration Magnesium Sulfate/Dextrose Confirm 06/28/23 00:54 Magnesium 1 Gm / 100 Ml D5w Administered 06/28/23 00:55 Dose 100 mls @ ud IV .STK-MED ONE Ondansetron HCl 4 mg 06/27/23 23:38 06/27/23 23:50 Ondansetron Hcl 4 Mg/2 Ml Vial IV 06/27/23 23:39 4 mg STAT ONE Administration Ondansetron HCl Confirm 06/27/23 23:46 Ondansetron Hcl 4 Mg/2 Ml Vial Administered 06/27/23 23:47 Dose 4 mg .ROUTE .STK-MED ONE Oseltamivir Phosphate 75 mg 06/28/23 00:49 06/28/23 00:56 Oseltamivir 75 Mg Cap PO 06/28/23 00:50 75 mg STAT ONE Administration Oseltamivir Phosphate Confirm 06/28/23 00:53 Oseltamivir 75 Mg Cap Administered 06/28/23 00:54 Dose 75 mg PO .STK-MED ONE Lab/Rad Data: Laboratory Result Diagrams 06/27/23 23:44 06/27/23 23:44 Laboratory Results 06/28/23 06/27/23 06/27/23 Range/Units 00:00 23:44 23:44 WBC (4.0-10.5) x10^3/uL RBC (4.1-5.4) x10^6/uL Hgb (12.0-16.0) g/dL Hct (35-47) % MCV (78-100) fL MCH (26-32) pg MCHC (32-36) g/dL RDW (11.5-14.0) % Plt Count (150-450) x10^3/uL MPV (7.5-11.0) fL Gran % (36.0-66.0) % Immature Gran % (Auto) (0.00-0.4) % Nucleat RBC Rel Count (0.00-0.1) % Eos # (Auto) (0-0.5) x10^3/uL Immature Gran # (Auto) (0.00-0.03) x10^3u/L Absolute Lymphs (auto) (1.0-4.6) x10^3/uL Absolute Monos (auto) (0.0-1.3) x10^3/uL Absolute Nucleated RBC (0.00-0.01) x10^3u/L Lymphocytes % (24.0-44.0) % Monocytes % (0.0-12.0) % Eosinophils % (0.00-5.0) % Basophils % (0.0-0.4) % Absolute Granulocytes (1.4-6.9) x10^3/uL Basophils # (0-0.4) x10^3/uL Sodium (137-145) mmol/L Potassium (3.5-5.1) mmol/L Chloride (98-107) mmol/L Carbon Dioxide (22-30) mmol/L Anion Gap (5-15) MEQ/L BUN (7-17) mg/dL Creatinine (0.52-1.04) mg/dL Estimated GFR ML/MIN Glucose (74-106) mg/dL Calcium (8.4-10.2) mg/dL Magnesium (1.6-2.3) mg/dL Total Bilirubin (0.2-1.3) mg/dL AST (14-36) U/L ALT (0-35) U/L Alkaline Phosphatase (38-126) U/L Troponin I (0.000-0.034) ng/mL NT-Pro-B Natriuret Pep 396 (<300) pg/mL Serum Total Protein (6.3-8.2) g/dL Albumin (3.5-5.0) g/dL Lipase 127 (23-300) U/L Influenza Type A Ag POSITIVE (NEGATIVE) Influenza Type B Ag NEGATIVE (NEGATIVE) RSV (PCR) NEGATIVE (NEGATIVE) SARS-CoV-2 (PCR) NEGATIVE (NEGATIVE) 06/27/23 06/27/23 06/27/23 Range/Units 23:44 23:44 23:44 WBC 7.5 (4.0-10.5) x10^3/uL RBC 4.34 (4.1-5.4) x10^6/uL Hgb 12.2 (12.0-16.0) g/dL Hct 38.8 (35-47) % MCV 89.4 (78-100) fL MCH 28.1 (26-32) pg MCHC 31.4 L (32-36) g/dL RDW 14.3 H (11.5-14.0) % Plt Count 167 (150-450) x10^3/uL MPV 10.6 (7.5-11.0) fL Gran % 77.4 H (36.0-66.0) % Immature Gran % (Auto) 0.3 (0.00-0.4) % Nucleat RBC Rel Count 0.0 (0.00-0.1) % Eos # (Auto) 0.22 (0-0.5) x10^3/uL Immature Gran # (Auto) 0.02 (0.00-0.03) x10^3u/L Absolute Lymphs (auto) 0.82 L (1.0-4.6) x10^3/uL Absolute Monos (auto) 0.59 (0.0-1.3) x10^3/uL Absolute Nucleated RBC 0.00 (0.00-0.01) x10^3u/L Lymphocytes % 11.0 L (24.0-44.0) % Monocytes % 7.9 (0.0-12.0) % Eosinophils % 3.0 (0.00-5.0) % Basophils % 0.4 (0.0-0.4) % Absolute Granulocytes 5.77 (1.4-6.9) x10^3/uL Basophils # 0.03 (0-0.4) x10^3/uL Sodium 135 L (137-145) mmol/L Potassium 3.8 (3.5-5.1) mmol/L Chloride 101 (98-107) mmol/L Carbon Dioxide 26 (22-30) mmol/L Anion Gap 11.5 (5-15) MEQ/L BUN 17 (7-17) mg/dL Creatinine 1.03 (0.52-1.04) mg/dL Estimated GFR 58.5 ML/MIN Glucose 117 H (74-106) mg/dL Calcium 8.5 (8.4-10.2) mg/dL Magnesium 1.5 L (1.6-2.3) mg/dL Total Bilirubin 0.60 (0.2-1.3) mg/dL AST 46 H (14-36) U/L ALT 49 H (0-35) U/L Alkaline Phosphatase 102 (38-126) U/L Troponin I < 0.012 (0.000-0.034) ng/mL NT-Pro-B Natriuret Pep (<300) pg/mL Serum Total Protein 7.2 (6.3-8.2) g/dL Albumin 4.0 (3.5-5.0) g/dL Lipase (23-300) U/L Influenza Type A Ag (NEGATIVE) Influenza Type B Ag (NEGATIVE) RSV (PCR) (NEGATIVE) SARS-CoV-2 (PCR) (NEGATIVE) - Progress Progress: improved, re-examined Air Movement: good Progress Note: 06/28/23 00:53 72 years old female with history of peripheral vertigo, hypertension, diabetes mellitus presented in the ER with complaints of cough congestion, watery eyes since she woke up this morning. Patient reports she was earlier having supper, felt thick mucus and Coughing repeatedly to make sure she could spit it out. Later on she got nauseated and vomited couple of times. No abdominal pain. Patient does report having dizziness earlier and took meclizine x 2 which is improved. Denies any chest pain palpitations or shortness of breath. Patient denies any numbness tingling or focal weakness. Patient reports she wanted to make sure she does not have COVID flu or RSV before she goes back to work tomorrow. No fever or chills reported. Does have a positive sick contact. Patient has nonfocal neuroexam. EKG normal sinus rhythm with no acute ischemic changes. She is not in any distress. Oxygen saturation around 96% on room air. Lungs clear to auscultation. She is given Zofran and fluid bolus, on reevaluation feeling much better. Patient has influenza A and started on Tamiflu. Baseline workup showed normal white count, mildly elevated liver enzyme and magnesium of 1.5 for which she is getting replacement. Troponins are negative. Chest x-ray negative for any acute cardiopulmonary findings reviewed by me, official report is pending. Patient is not dizzy or lightheaded anymore and does not want meclizine. I believe patient has viral syndrome from influenza and will continue with Tamiflu and supportive care to go home. Discussed signs symptoms of worsening needing return to ER which she seems understanding. Stable for discharge. Blood Culture(s) Obtained: No Antibiotics given: No Counseled pt/family regarding: lab results, diagnosis, need for follow-up, rad results Medical Desision Making - Diagnostic Testing Diagnostic test were ordered, analyzed, and reviewed by me: Yes Radiological Interpretation: Interpreted by me, Reviewed by me - Risk of complications The pt has a mod risk of morbidity or mortality based on: Need for prescription drug management - Departure Departure Disposition: Home Clinical Impression: Influenza A, Hypomagnesemia, Vomiting Condition: Stable Critical Care Time: No Referrals: ASIA SANTIAGO [Primary Care Provider] - Follow up with PCP 1 day Instructions: Flu, Adult (DC), Cough, Adult (DC) Additional Instructions: Take Tylenol as needed. Follow-up with primary care for reevaluation. Return to ER for intractable vomiting/cough/difficulty breathing, persistent high-grade fever chills or worsening dizziness/lightheadedness etc. Prescriptions: Oseltamivir 75 mg [Tamiflu 75MG Capsule] 75 mg PO BID #10 cap
[2023-06-28 00:07] LABS: Absolute Neutrophil Ct (ANC) 5.77 x10^3/uL (1.4-6.9); BASOPHIL % 0.4 % (0.0-0.4); Basophil (Absolute #) 0.03 x10^3/uL (0-0.4); Eosinophil (Absolute #) 0.22 x10^3/uL (0-0.5); Hematocrit 38.8 % (35-47); Hemoglobin 12.2 g/dL (12.0-16.0); IMMATURE GRAN # 0.02 x10^3u/L (0.00-0.03); IMMATURE GRAN % 0.3 % (0.00-0.4); Lymphocyte (Absolute #) 0.82 x10^3/uL (1.0-4.6); Mean Cell Volume 89.4 fL (78-100); Mean Corpuscular Hemoglobin 28.1 pg (26-32); Mean Corpuscular Hgb Concent. 31.4 g/dL (32-36); Mean Platelet Volume 10.6 fL (7.5-11.0); Monocyte (Absolute #) 0.59 x10^3/uL (0.0-1.3); Monocytes % 7.9 % (0.0-12.0); Neutrophil % 77.4 % (36.0-66.0); Platelet Count 167 x10^3/uL (150-450); Red Blood Count 4.34 x10^6/uL (4.1-5.4); Red Cell Distribution Width 14.3 % (11.5-14.0); White Blood Count 7.5 x10^3/uL (4.0-10.5)
[2023-06-28 00:19] LABS: ANION GAP 11.5 MEQ/L (5-15); BILIRUBIN,TOTAL 0.6 mg/dL (0.2-1.3); Calcium 8.5 mg/dL (8.4-10.2); Creatinine 1 1.03 mg/dL (0.52-1.04); EST GLOMERULAR FILTRATION RATE 58.5 ML/MIN; MAGNESIUM 1.5 mg/dL (1.6-2.3); Potassium 3.8 mmol/L (3.5-5.1); Total Protein 7.2 g/dL (6.3-8.2)
[2023-06-28 00:43] LABS: INFLUENZA B NEGATIVE (NEGATIVE); RESPIRATORY SYNCTIAL VIRUS NEGATIVE (NEGATIVE); SARS-CoV-2 Xpert Express NEGATIVE (NEGATIVE)
[2023-06-28 00:44] LABS: INFLUENZA A POSITIVE (NEGATIVE)
[2023-06-28] MEDS ORDERED: Magnesium 1 Gm / 100 Ml D5W*** 100 ML IV ONE ×2 (00:49→00:54)
[2023-06-28] MEDS ORDERED: Tamiflu 75MG Capsule PO ONE ×2 (00:49→00:53)
[2023-06-28 01:30] VITALS: BP 144/64; PULSE 85; RESP 25
[2023-06-28 01:34] VITALS: O2SAT 95
--- NOTE | 2023-06-28 08:33 | XRAY ---
Indication: Cough. Comparison: June 14, 2020 Portable chest is now clear. Heart and mediastinal structures within normal limits. Bony thorax intact again with mild degenerative changes. Impression: Nonacute chest.
== END 2023-06-28 01:41 | disposition home or self-care (01) ==
LOC: ED 23:08
DX: J10.1 Influenza due to other identified influenza virus with other respiratory manifestations (principal); E83.42 Hypomagnesemia; R11.2 Nausea with vomiting, unspecified; R05.1 Acute cough; R42 Dizziness and giddiness; I10 Essential (primary) hypertension; E11.9 Type 2 diabetes mellitus without complications; Z79.85 Long-term (current) use of injectable non-insulin antidiabetic drugs; Z79.899 Other long term (current) drug therapy
CPT/HCPCS: 0241U; 36000; 36415; 71045; 80053; 83690; 83735; 83880; 84484; 85025; 93005; 96374; 99284; J2405; J3475; A9270-GY

== ENCOUNTER 2023-06-28 14:58 | Emergency (ER) | payer MEDICARE ==
[2023-06-28 15:09] VITALS: TEMP 99.1
--- NOTE | 2023-06-28 15:24 | ERPHSYRPT ---
- History of Present Illness Time Seen by Provider: 06/28/23 15:00 Source: patient, EMS, old records Exam Limitations: no limitations Patient Subjective Stated Complaint: Pt states "I am positive for influenza a this morning here at your hospital and I was slurring my words a little and my grandkids got nervous and wanted me to come here." Triage Nursing Assessment: Pt presented alert and oriented X 3, skin pwd. Pt ambulates with an upright steady gait, able to speak in clear full sentences. Pt resting comfortably on the bed. PT has equal bilat strenght, no facial droop. Physician History: This is a morbidly obese 72-year-old white female patient of Dr. Escobar who was seen here in our emergency department late last night for nausea and dizziness symptoms. She had lab drawn approximately 2344 on the evening of 06/27/2023. Patient tested positive for influenza A. She was discharged earlier this morning. She has felt generally weak. There was a question of possible slurring of her speech and her grand kids wanted her to come to the emergency department for evaluation. Patient's room air oxygen saturation levels 93 to 94%. She complains of generalized weakness. Patient is moving all her extremities. Patient is in no distress at this time. She is not slurring her speech at this time. Patient's blood sugar on arrival to the emergency department was 107. Her magnesium level was 1.5 on late last evening's lab draw. She denies chest pain. She denies shortness of breath. She has no abdominal pain. Timing/Duration: today Severity: mild Character of Deficits: none, other (She has no deficits at this time. However, there was possible slurring of speech prior to her arrival to the emergency department.) Baseline/Normal Cognition: alert oriented x 3 Current Cognition: alert oriented x 3 Baseline Gait: walks w/o assistance Associated Symptoms: slurred speech (Prior to arrival to the emergency department) Allergies/Adverse Reactions: Penicillins Allergy (Unknown, Verified 06/27/23 23:33) Home Medications: Meclizine HCl 25 mg [Antivert 25 mg] 1 tab PO TID PRN PRN 08/18/16 [History] Metoprolol Succinate 100 mg PO QPM 08/18/16 [History] Spironolactone 25 mg [Aldactone 25 MG] 25 mg PO BID 08/18/16 [History] Albuterol Sulfate 2.5 mg IH QID PRN PRN 10/01/22 [History] Albuterol Sulfate [Proair Respiclick] 90 mcg IH Q4HPRN PRN 10/01/22 [History] Escitalopram Oxalate 20 mg PO DAILY 10/01/22 [History] Semaglutide [Ozempic] 0.25 mg SQ WEEKLY 10/01/22 [History] Aspirin EC 81 mg [Ecotrin 81 mg] 1 tab PO DAILY 10/26/22 [History] Budesonide/Formoterol Fumarate [Budesonide-Formoterol 80-4.5] 1 puff IH DAILY 10/26/22 [History] Diazepam [Valium] 1 tab PO TID PRN 10/26/22 [History] Hx Tetanus, Diphtheria Vaccination/Date Given: No Hx Influenza Vaccination/Date Given: Yes Hx Pneumococcal Vaccination/Date Given: Yes Immunizations Up to Date: Yes Travel Risk - International Travel Have you traveled outside of the country in past 3 weeks: No - Coronavirus Screening Are you exhibiting any of the following symptoms?: Yes Symptoms: Fever Close contact with a COVID-19 positive Pt in past 14-21 Days: No - Vaccine Status Have you recieved a Covid-19 vaccination: Yes 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 - Vaccination Dates Date of 2cond Vaccination (if applicable): 10/08/20 Dates if Unknown: unk - Review of Systems Constitutional: Weakness Eyes: No Symptoms (Mineralized) Ears, Nose, & Throat: No Symptoms Respiratory: No Symptoms Cardiac: No Symptoms Abdominal/Gastrointestinal: No Symptoms Genitourinary Symptoms: No Symptoms Musculoskeletal: No Symptoms Skin: No Symptoms Neurological: No Symptoms Psychological: No Symptoms Endocrine: No Symptoms Hematologic/Lymphatic: No Symptoms Immunological/Allergic: No Symptoms All Other Systems: Reviewed and Negative - Past Medical History Pertinent Past Medical History: Yes Neurological History: No Pertinent History ENT History: No Pertinent History Cardiac History: Hypertension, Other Respiratory History: Asthma Endocrine Medical History: Diabetes Type II Musculoskeletal History: Arthritis GI Medical History: Gallbladder Disease History: No Pertinent History Psycho-Social History: Depression, Anxiety Female Reproductive Disorders: No Pertinent History Other Medical History: INNER EAR, 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 - Past Surgical History Past Surgical History: Yes Neuro Surgical History: No Pertinent History Cardiac: Cardiac Catheterization Respiratory: No Pertinent History Gastrointestinal: Cholecystectomy Genitourinary: No Pertinent History Musculoskeletal: No Pertinent History Female Surgical History: Section, Dilation & Curettage Other Surgical History: uterine biopsy - Social History Smoking Status: Never smoker Exposure to second hand smoke: No Drug Use: none Patient Lives Alone: Yes - Nursing Vital Signs Nursing Vital Signs: Initial Vital Signs Temperature 99.1 F 06/28/23 15:00 Pulse Rate 80 06/28/23 15:00 Respiratory Rate 20 06/28/23 15:00 Blood Pressure 152/69 06/28/23 15:00 O2 Sat by Pulse Oximetry 94 L 06/28/23 15:00 Pain Scale Pain Intensity 0 - [place] Coma Scale Best Eye Response ([place]): (4) open spontaneously Best Verbal Response ([place]): (5) oriented Best Motor Response (Myranda): (6) obeys commands [place] Total: 15 - Physical Exam General Appearance: no apparent distress, alert, obese Eye Exam: bilateral eye: normal inspection, PERRL, EOMI Ears, Nose, Throat Exam: normal ENT inspection, moist mucous membranes Neck Exam: normal inspection, non-tender, supple, full range of motion Respiratory: normal breath sounds, lungs clear, airway intact, No chest tenderness, No respiratory distress Cardiovascular: regular rate/rhythm, normal heart sounds, normal peripheral pulses Gastrointestinal: soft, normal bowel sounds, No tenderness Pelvic Exam: not done Rectal Exam: not done Back Exam: normal inspection, normal range of motion, No CVA tenderness, No vertebral tenderness Extremity Exam: normal inspection, normal range of motion, pelvis stable Mental Status: alert, oriented x 3, 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 Exam: normal hearing, normal speech, PERRL, tongue midline Coordination/Gait: normal finger to nose Motor/Sensory: no motor deficit, no sensory deficit, no pronator drift Skin Exam: normal color, warm, dry SpO2 Interpretation: normal SpO2: 94 O2 Delivery: Room Air - Course Nursing assessment & vital signs reviewed: Yes EKG Interpreted by Me: RATE (80), Sinus Rhythm, NORMAL AXIS, NORMAL INTERVALS, NORMAL QRS, NORMAL ST-T, Other (No acute ischemic changes on today's twelve-lead EKG) Ordered Tests: Active Orders 24 hr Category Date Time Status 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 Care 06/28/23 15:26 Active EKG-ER Only STAT Care 06/28/23 15:26 Active IV Insertion STAT Care 06/28/23 15:26 Active Pulse Oximetry (ED) STAT Care 06/28/23 15:26 Active Tele-Health Consult ROUTINE Cons 06/28/23 17:03 Active HEAD WITHOUT CONTRAST [CT] Stat Exams 06/28/23 15:26 Completed BMP Stat Lab 06/28/23 15:40 Completed CBC W DIFF Stat Lab 06/28/23 15:40 Completed MAG [MAGNESIUM] Stat Lab 06/28/23 15:40 Completed Respiratory Therapy Assessment DAILY RT 06/28/23 17:22 Active Medication Summary Discontinued Medications Generic Name Dose Route Start Last Admin Trade Name Freq PRN Reason Stop Dose Admin Albuterol/Ipratropium 3 ml 06/28/23 17:17 06/28/23 17:21 Ipratropium/Albuterol Sulfate 3 Ml Ampul.Neb IH 06/28/23 17:18 3 ml STAT ONE Administration Albuterol/Ipratropium Confirm 06/28/23 17:18 Ipratropium/Albuterol Sulfate 3 Ml Ampul.Neb Administered 06/28/23 17:19 Dose 3 ml IH .STK-MED ONE Sodium Chloride 1,000 mls @ 999 mls/hr 06/28/23 15:26 06/28/23 16:55 Sodium Chloride 0.9% 1000 Ml IV 06/28/23 16:26 Infused .Q1H1M STA Infusion Sodium Chloride Confirm 06/28/23 15:50 Sodium Chloride 0.9% 1000 Ml Administered 06/28/23 15:51 Dose 1,000 mls @ ud .ROUTE .STK-MED ONE Lab/Rad Data: Laboratory Result Diagrams 06/28/23 15:40 06/28/23 15:40 Laboratory Results 06/28/23 06/28/23 06/28/23 Range/Units 15:40 15:40 15:40 WBC 5.7 (4.0-10.5) x10^3/uL RBC 4.20 (4.1-5.4) x10^6/uL Hgb 11.9 L (12.0-16.0) g/dL Hct 37.3 (35-47) % MCV 88.8 (78-100) fL MCH 28.3 (26-32) pg MCHC 31.9 L (32-36) g/dL RDW 14.6 H (11.5-14.0) % Plt Count 144 L (150-450) x10^3/uL MPV 10.7 (7.5-11.0) fL Gran % 75.5 H (36.0-66.0) % Immature Gran % (Auto) 0.3 (0.00-0.4) % Nucleat RBC Rel Count 0.0 (0.00-0.1) % Eos # (Auto) 0.06 (0-0.5) x10^3/uL Immature Gran # (Auto) 0.02 (0.00-0.03) x10^3u/L Absolute Lymphs (auto) 0.83 L (1.0-4.6) x10^3/uL Absolute Monos (auto) 0.49 (0.0-1.3) x10^3/uL Absolute Nucleated RBC 0.00 (0.00-0.01) x10^3u/L Lymphocytes % 14.5 L (24.0-44.0) % Monocytes % 8.5 (0.0-12.0) % Eosinophils % 1.0 (0.00-5.0) % Basophils % 0.2 (0.0-0.4) % Absolute Granulocytes 4.33 (1.4-6.9) x10^3/uL Basophils # 0.01 (0-0.4) x10^3/uL Sodium 131 L (137-145) mmol/L Potassium 4.1 (3.5-5.1) mmol/L Chloride 101 (98-107) mmol/L Carbon Dioxide 25 (22-30) mmol/L Anion Gap 9.8 (5-15) MEQ/L BUN 12 (7-17) mg/dL Creatinine 0.72 (0.52-1.04) mg/dL Estimated GFR 89.9 ML/MIN Glucose 113 H (74-106) mg/dL Calcium 8.8 (8.4-10.2) mg/dL Magnesium 1.8 (1.6-2.3) mg/dL Urine Color (YELLOW) Urine Appearance (CLEAR) Urine pH (5-6) Ur Specific Donna (1.005-1.025) POC Urine Protein Conf (Negative) Urine Ketones (NEGATIVE) Urine Nitrite (NEGATIVE) Urine Bilirubin (NEGATIVE) Urine Urobilinogen (0-1) mg/dL Urine Leukocytes (NEGATIVE) U Hyaline Cast (Auto) (0-2) /LPF Urine RBC (0-5) Angelito/ul Urine Microscopic RBC (0-5) /HPF Urine Microscopic WBC (0-5) /HPF Ur Epithelial Cells (None Seen) /HPF Urine Bacteria (None Seen) /HPF Urine Culture Reflexed (NO) Urine Glucose (NEGATIVE) mg/dL 06/28/23 Range/Units 15:30 WBC (4.0-10.5) x10^3/uL RBC (4.1-5.4) x10^6/uL Hgb (12.0-16.0) g/dL Hct (35-47) % MCV (78-100) fL MCH (26-32) pg MCHC (32-36) g/dL RDW (11.5-14.0) % Plt Count (150-450) x10^3/uL MPV (7.5-11.0) fL Gran % (36.0-66.0) % Immature Gran % (Auto) (0.00-0.4) % Nucleat RBC Rel Count (0.00-0.1) % Eos # (Auto) (0-0.5) x10^3/uL Immature Gran # (Auto) (0.00-0.03) x10^3u/L Absolute Lymphs (auto) (1.0-4.6) x10^3/uL Absolute Monos (auto) (0.0-1.3) x10^3/uL Absolute Nucleated RBC (0.00-0.01) x10^3u/L Lymphocytes % (24.0-44.0) % Monocytes % (0.0-12.0) % Eosinophils % (0.00-5.0) % Basophils % (0.0-0.4) % Absolute Granulocytes (1.4-6.9) x10^3/uL Basophils # (0-0.4) x10^3/uL Sodium (137-145) mmol/L Potassium (3.5-5.1) mmol/L Chloride (98-107) mmol/L Carbon Dioxide (22-30) mmol/L Anion Gap (5-15) MEQ/L BUN (7-17) mg/dL Creatinine (0.52-1.04) mg/dL Estimated GFR ML/MIN Glucose (74-106) mg/dL Calcium (8.4-10.2) mg/dL Magnesium (1.6-2.3) mg/dL Urine Color YELLOW (YELLOW) Urine Appearance CLEAR (CLEAR) Urine pH 5.5 (5-6) Ur Specific Donna 1.025 (1.005-1.025) POC Urine Protein Conf NEGATIVE (Negative) Urine Ketones NEGATIVE (NEGATIVE) Urine Nitrite NEGATIVE (NEGATIVE) Urine Bilirubin NEGATIVE (NEGATIVE) Urine Urobilinogen 0.2 (0-1) mg/dL Urine Leukocytes NEGATIVE (NEGATIVE) U Hyaline Cast (Auto) NONE SEEN (0-2) /LPF Urine RBC TRACE-INTACT A (0-5) Angelito/ul Urine Microscopic RBC 0-2 (0-5) /HPF Urine Microscopic WBC 0-2 (0-5) /HPF Ur Epithelial Cells None Seen (None Seen) /HPF Urine Bacteria None Seen (None Seen) /HPF Urine Culture Reflexed NO (NO) Urine Glucose NEGATIVE (NEGATIVE) mg/dL - Progress Progress: improved, re-examined Progress Note: 06/28/23 15:24 This patient's medical issue is 1 of moderate complexity. Level complex in the workup performed is based on review of the patient's past medical history, review the patient's medication list, review the patient's allergy list, history of present illness and physical findings on examination. The workup in this patient includes placement of an intravenous line, infusion of normal saline solution, urinalysis, twelve-lead EKG, magnesium level, CBC, BMP, troponin level, CT scan of the head without contrast. I reviewed the lab results from the emergency room visit from 06/27/2023. 06/28/23 16:[address] scan of the head without contrast was interpreted by the radiologist. I reviewed the impression. The impression is nonacute senile brain. 06/28/23 17:25 Although the patient has a few risk factors for TIA or possible stroke, Dr. Shultz, the teleneurologist, does not feel that the patient has had a TIA or CVA and is at low risk for having had 1 yesterday or today. He recommends an MRI of the brain within 1 week's time as an outpatient. He also recommends that the patient return to the emergency department if symptoms recur. Counseled pt/family regarding: lab results, diagnosis, need for follow-up, rad results Medical Desision Making - Independent Historian Additional History obtained from: Histotechnician/EMT - Diagnostic Testing Diagnostic test were ordered, analyzed, and reviewed by me: Yes Radiological Interpretation: Reviewed by me, Teleradiologist Report - Risk of complications Low Risk: Low risk of morbidity from additional dx testing or treatment - Departure Departure Disposition: Home Clinical Impression: Influenza A H1N1 infection, Cough Condition: Stable Critical Care Time: No Referrals: ASIA ESCOBAR [Primary Care Provider] - Follow up/PCP as directed Additional Instructions: Continue all your medications as prescribed. Follow-up with your primary care provider tomorrow, 06/29/2023, to make arrangements for an outpatient MRI of the brain within a week's time. Return to the emergency department if symptoms recur.
[2023-06-28] MEDS ORDERED: Sodium Chloride 0.9% 1000 ML 1,000 ML IV STA (15:26)
--- NOTE | 2023-06-28 15:46 | XRAY ---
Indication: Slurred speech. Multiple contiguous axial images obtained through abdomen without contrast. Comparison: None Age-appropriate global atrophy and mild periventricular degenerative micro-ischemia bilaterally. No acute intracranial hemorrhage, abnormal extra-axial fluid collection, or mass effect. Fourth ventricle is midline without hydrocephalus. Bony calvarium intact. Visualized paranasal sinuses and mastoid air cells are clear. Impression: Nonacute senile brain.
[2023-06-28] MEDS ORDERED: Sodium Chloride 0.9% 1000 ML 1,000 ML ONE (15:50)
[2023-06-28 15:59] LABS: Absolute Neutrophil Ct (ANC) 4.33 x10^3/uL (1.4-6.9); BASOPHIL % 0.2 % (0.0-0.4); Basophil (Absolute #) 0.01 x10^3/uL (0-0.4); Eosinophil (Absolute #) 0.06 x10^3/uL (0-0.5); Hematocrit 37.3 % (35-47); Hemoglobin 11.9 g/dL (12.0-16.0); IMMATURE GRAN # 0.02 x10^3u/L (0.00-0.03); IMMATURE GRAN % 0.3 % (0.00-0.4); Lymphocyte (Absolute #) 0.83 x10^3/uL (1.0-4.6); Lymphocytes % 14.5 % (24.0-44.0); Mean Cell Volume 88.8 fL (78-100); Mean Corpuscular Hemoglobin 28.3 pg (26-32); Mean Corpuscular Hgb Concent. 31.9 g/dL (32-36); Mean Platelet Volume 10.7 fL (7.5-11.0); Monocyte (Absolute #) 0.49 x10^3/uL (0.0-1.3); Monocytes % 8.5 % (0.0-12.0); Neutrophil % 75.5 % (36.0-66.0); Platelet Count 144 x10^3/uL (150-450); Red Cell Distribution Width 14.6 % (11.5-14.0); White Blood Count 5.7 x10^3/uL (4.0-10.5)
[2023-06-28 16:21] LABS: ANION GAP 9.8 MEQ/L (5-15); Calcium 8.8 mg/dL (8.4-10.2); Creatinine 1 0.72 mg/dL (0.52-1.04); EST GLOMERULAR FILTRATION RATE 89.9 ML/MIN; Potassium 4.1 mmol/L (3.5-5.1)
[2023-06-28 16:23] LABS: Bacteria None Seen /HPF (None Seen); Epithelial Cells None Seen /HPF (None Seen); Hyaline Casts NONE SEEN /LPF (0-2); RBC 0-2 /HPF (0-5); WBC 0-2 /HPF (0-5)
[2023-06-28 16:24] LABS: ADD URINE CULTURE? NO (NO); Appearance CLEAR (CLEAR); Bilirubin NEGATIVE (NEGATIVE); Glucose NEGATIVE (NEGATIVE); Ketones NEGATIVE (NEGATIVE); Nitrite NEGATIVE (NEGATIVE); Ph 5.5 (5-6); Protein,Urine Dip NEGATIVE (Negative); RBC TRACE-INTACT Ery/ul (0-5); Specific Gravity 1.025 (1.005-1.025); Urobilinogen 0.2 mg/dL (0-1)
[2023-06-28] MEDS ORDERED: DUONEB 0.5-3 MG/3 ml Neb IH ONE ×2 (17:17→17:18)
[2023-06-28 17:24] VITALS: RESP 18
[2023-06-28 17:27] VITALS: O2SAT 94
[2023-06-28 17:38] VITALS: BP 145/53; PULSE 76
== END 2023-06-28 17:46 | disposition home or self-care (01) ==
LOC: ED 14:58
DX: J10.1 Influenza due to other identified influenza virus with other respiratory manifestations (principal); R05.9 Cough, unspecified; R53.1 Weakness; I10 Essential (primary) hypertension; E11.9 Type 2 diabetes mellitus without complications; Z79.85 Long-term (current) use of injectable non-insulin antidiabetic drugs; Z79.899 Other long term (current) drug therapy
CPT/HCPCS: 36000; 36415; 70450; 80048; 81015; 83735; 85025; 93005; 93041; 94640; 94760; 96360; 99284; A9270-GY

== ENCOUNTER 2023-08-04 09:57 | Emergency (ER) | payer MEDICARE ==
--- NOTE | 2023-08-04 10:09 | ERPHSYRPT ---
- History of Present Illness Time Seen by Provider: 08/04/23 10:09 Historian: patient Exam Limitations: no limitations Physician History: This is a 72-year-old overweight white female patient of Dr. Escobar who also sees control director Dr. Zimmerman and presents to the emergency department with substernal central chest pressure, indigestion, gassiness that intermittently go es in to her back. Initially, patient went to outpatient urgent care clinic. They performed a twelve-lead EKG. They thought there might be a cardiac issue therefore they sent the patient to the emergency department. I reviewed the outpatient twelve-lead EKG which was performed on 08/04/2023 at 9:37 AM. There is a heart rate that is 63 bpm. It is normal sinus rhythm. Normal axis deviation, normal QRS, normal intervals without evidence of any acute ischemic changes. Patient's gallbladder has been removed. Symptoms have been present for 3 days. She states that her symptoms today are much improved. She has not taken any of her medications this morning. Patient admits that the months of June and July are very stressful for her emotionally because of deaths in the family. She is also stressed that she does not have a vehicle that she can ride to pay her respects to her family. Patient has never been a smoker. She has had a cardiac catheterization in the past but no cardiac stents were placed. She states that it was too difficult for the control director to place a stent so they discontinued the procedure. They put the patient on Plavix. Patient has a history of hypertension, asthma, diabetes, arthritis and depression. Timing/Duration: day(s) (3) Quality: burning, pressure, other Location: substernal, central Chest Pain Radiation: back Severity of Pain-Max: mild (To moderate) Severity of Pain-Current: none Modifying Factors: Improves With: nothing Associated Symptoms: heartburn, other ([place]), No nausea, No vomiting, No palpitations, No abdominal pain, No shortness of breath, No cough, No fever, No dizziness Prior Chest Pain/Cardiac Workup: cardiac cath Nitro Today/Relief: no nitro taken today Aspirin Treatment Today: no aspirin today Allergies/Adverse Reactions: Penicillins Allergy (Unknown, Verified 08/04/23 10:12) Home Medications: Aspirin EC 81 mg [Ecotrin 81 mg] 1 tab PO DAILY 10/26/22 [History] Clopidogrel Bisulfate [PLAVIX Tablet] 1 tab PO DAILY 08/04/23 [History] Escitalopram Oxalate [Lexapro] 20 mg PO DAILY 08/04/23 [History] Meclizine HCl 25 mg [Antivert 25 mg] 1 tab PO TID 08/04/23 [History] Metoprolol Succinate 100 mg [Toprol Xl 100 MG] 1 tab PO DAILY 08/04/23 [History] Hx Tetanus, Diphtheria Vaccination/Date Given: No Hx Influenza Vaccination/Date Given: Yes Hx Pneumococcal Vaccination/Date Given: Yes Travel Risk - International Travel Have you traveled outside of the country in past 3 weeks: No - Coronavirus Screening Are you exhibiting any of the following symptoms?: No Close contact with a COVID-19 positive Pt in past 14-21 Days: No - Vaccine Status Have you recieved a Covid-19 vaccination: Yes Exchange Teller: Unknown - Vaccination Dates Date of 2cond Vaccination (if applicable): 10/08/20 Dates if Unknown: unk - Review of Systems Constitutional: No Symptoms Eyes: Photophobia Ears, Nose, & Throat: No Symptoms Respiratory: No Symptoms Cardiac: Chest Pain Abdominal/Gastrointestinal: No Symptoms Genitourinary Symptoms: No Symptoms Musculoskeletal: No Symptoms Skin: No Symptoms Neurological: No Symptoms Psychological: No Symptoms Endocrine: No Symptoms Hematologic/Lymphatic: No Symptoms Immunological/Allergic: No Symptoms All Other Systems: Reviewed and Negative - Past Medical History Pertinent Past Medical History: Yes Neurological History: No Pertinent History ENT History: No Pertinent History Cardiac History: Hypertension, Other Respiratory History: Asthma Endocrine Medical History: Diabetes Type II Musculoskeletal History: Arthritis GI Medical History: Gallbladder Disease History: No Pertinent History Psycho-Social History: Depression, Anxiety Female Reproductive Disorders: No Pertinent History Other Medical History: INNER EAR, 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 - Past Surgical History Past Surgical History: Yes Neuro Surgical History: No Pertinent History Cardiac: Cardiac Catheterization Respiratory: No Pertinent History Gastrointestinal: Cholecystectomy Genitourinary: No Pertinent History Musculoskeletal: No Pertinent History Female Surgical History: Section, Dilation & Curettage Other Surgical History: uterine biopsy - Social History Smoking Status: Never smoker Exposure to second hand smoke: No Drug Use: none Patient Lives Alone: Yes - Nursing Vital Signs Nursing Vital Signs: Initial Vital Signs Pulse Rate 62 08/04/23 10:01 Blood Pressure 141/69 08/04/23 10:01 O2 Sat by Pulse Oximetry 100 08/04/23 10:01 Pain Scale Pain Intensity 2 - Physical Exam General Appearance: no apparent distress, alert, anxiety, obese Eye Exam: PERRL/EOMI, eyes nml inspection Ears, Nose, Throat Exam: normal ENT inspection, moist mucous membranes Neck Exam: normal inspection, non-tender, supple, full range of motion Respiratory Exam: normal breath sounds, lungs clear, airway intact, No chest tenderness, No respiratory distress Cardiovascular Exam: regular rate/rhythm, normal heart sounds, normal peripheral pulses Gastrointestinal/Abdomen Exam: soft, normal bowel sounds, No tenderness Pelvic Exam: not done Rectal Exam: not done Back Exam: normal inspection, normal range of motion, No CVA tenderness, No vertebral tenderness Extremity Exam: normal inspection, normal range of motion, pelvis stable Neurologic Exam: alert, oriented x 3, cooperative, car repairer pullman 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 tested, normal mood/affect, nml cerebellar function, nml station & gait, sensation nml Skin Exam: normal color, warm, dry Lymphatic Exam: No adenopathy SpO2 Interpretation: normal O2 Delivery: Room Air - Course Nursing assessment & vital signs reviewed: Yes EKG Interpreted by Me: RATE, Sinus Rhythm, NORMAL AXIS, NORMAL INTERVALS, NORMAL QRS, NORMAL ST-T, Other (No acute ischemic changes on today's twelve-lead EKG) Ordered Tests: Active Orders 24 hr Category Date Time Status Business Intelligence Developer STAT Care 08/04/23 10:10 Active EKG-ER Only STAT Care 08/04/23 10:09 Active IV Insertion STAT Care 08/04/23 10:09 Active Pulse Oximetry (ED) STAT Care 08/04/23 10:09 Active CHEST 1 VIEW (PORTABLE) Stat Exams 08/04/23 10:10 Completed CBC W DIFF Stat Lab 08/04/23 10:30 Completed CMP Stat Lab 08/04/23 10:30 Completed NT PRO BNPII Stat Lab 08/04/23 10:30 Completed PROTIME WITH INR Stat Lab 08/04/23 10:30 Completed TROPONIN Q4H Lab 08/04/23 10:30 Completed TROPONIN Q4H Lab 08/04/23 14:15 Ordered TROPONIN Q4H Lab 08/04/23 18:15 Ordered Medication Summary Discontinued Medications Generic Name Dose Route Start Last Admin Trade Name Dayana PRN Reason Stop Dose Admin Aspirin 243 mg 08/04/23 10:09 08/04/23 10:25 Aspirin 81 Mg Tab.Chew PO 08/04/23 10:10 243 mg STAT ONE Administration Aspirin Confirm 08/04/23 10:24 Aspirin 81 Mg Tab.Chew Administered 08/04/23 10:25 Dose 324 mg .ROUTE .STK-MED ONE Lab/Rad Data: Laboratory Result Diagrams 08/04/23 10:30 08/04/23 10:30 Laboratory Results 08/04/23 08/04/23 08/04/23 Range/Units 10:30 10:30 10:30 WBC (4.0-10.5) x10^3/uL RBC (4.1-5.4) x10^6/uL Hgb (12.0-16.0) g/dL Hct (35-47) % MCV (78-100) fL MCH (26-32) pg MCHC (32-36) g/dL RDW (11.5-14.0) % Plt Count (150-450) x10^3/uL MPV (7.5-11.0) fL Gran % (36.0-66.0) % Immature Gran % (Auto) (0.00-0.4) % Nucleat RBC Rel Count (0.00-0.1) % Eos # (Auto) (0-0.5) x10^3/uL Immature Gran # (Auto) (0.00-0.03) x10^3u/L Absolute Lymphs (auto) (1.0-4.6) x10^3/uL Absolute Monos (auto) (0.0-1.3) x10^3/uL Absolute Nucleated RBC (0.00-0.01) x10^3u/L Lymphocytes % (24.0-44.0) % Monocytes % (0.0-12.0) % Eosinophils % (0.00-5.0) % Basophils % (0.0-0.4) % Absolute Granulocytes (1.4-6.9) x10^3/uL Basophils # (0-0.4) x10^3/uL PT 10.6 (9.4-12.5) SECONDS INR 0.97 (0.8-3.0) Sodium 138 (137-145) mmol/L Potassium 4.0 (3.5-5.1) mmol/L Chloride 101 (98-107) mmol/L Carbon Dioxide 29 (22-30) mmol/L Anion Gap 11.6 (5-15) MEQ/L BUN 15 (7-17) mg/dL Creatinine 0.67 (0.52-1.04) mg/dL Estimated GFR 94.0 ML/MIN Glucose 137 H (74-106) mg/dL Calcium 9.3 (8.4-10.2) mg/dL Total Bilirubin 0.70 (0.2-1.3) mg/dL AST 71 H (14-36) U/L ALT 119 H (0-35) U/L Alkaline Phosphatase 112 (38-126) U/L Troponin I < 0.012 (0.000-0.034) ng/mL NT-Pro-B Natriuret Pep 89.5 (<300) pg/mL Serum Total Protein 7.9 (6.3-8.2) g/dL Albumin 4.5 (3.5-5.0) g/dL Slides for Path Review 08/04/23 Range/Units 10:30 WBC 7.9 (4.0-10.5) x10^3/uL RBC 4.63 (4.1-5.4) x10^6/uL Hgb 12.8 (12.0-16.0) g/dL Hct 42.1 (35-47) % MCV 90.9 (78-100) fL MCH 27.6 (26-32) pg MCHC 30.4 L (32-36) g/dL RDW 13.5 (11.5-14.0) % Plt Count 200 (150-450) x10^3/uL MPV 10.2 (7.5-11.0) fL Gran % 60.7 (36.0-66.0) % Immature Gran % (Auto) 0.4 (0.00-0.4) % Nucleat RBC Rel Count 0.0 (0.00-0.1) % Eos # (Auto) 0.40 (0-0.5) x10^3/uL Immature Gran # (Auto) 0.03 (0.00-0.03) x10^3u/L Absolute Lymphs (auto) 2.19 (1.0-4.6) x10^3/uL Absolute Monos (auto) 0.46 (0.0-1.3) x10^3/uL Absolute Nucleated RBC 0.00 (0.00-0.01) x10^3u/L Lymphocytes % 27.6 (24.0-44.0) % Monocytes % 5.8 (0.0-12.0) % Eosinophils % 5.0 (0.00-5.0) % Basophils % 0.5 (0.0-0.4) % Absolute Granulocytes 4.81 (1.4-6.9) x10^3/uL Basophils # 0.04 (0-0.4) x10^3/uL PT (9.4-12.5) SECONDS INR (0.8-3.0) Sodium (137-145) mmol/L Potassium (3.5-5.1) mmol/L Chloride (98-107) mmol/L Carbon Dioxide (22-30) mmol/L Anion Gap (5-15) MEQ/L BUN (7-17) mg/dL Creatinine (0.52-1.04) mg/dL Estimated GFR ML/MIN Glucose (74-106) mg/dL Calcium (8.4-10.2) mg/dL Total Bilirubin (0.2-1.3) mg/dL AST (14-36) U/L ALT (0-35) U/L Alkaline Phosphatase (38-126) U/L Troponin I (0.000-0.034) ng/mL NT-Pro-B Natriuret Pep (<300) pg/mL Serum Total Protein (6.3-8.2) g/dL Albumin (3.5-5.0) g/dL Slides for Path Review YES - Progress Progress: improved, re-examined Air Movement: good Progress Note: 08/04/23 10:29 This patient's medical issue is 1 of moderate complexity. The level of co mplexity in the workup performed is based on review of the patient's past medical history, review of the patient's medication list, review of patient drug allergy list, history present illness and physical findings on examination. The workup includes aspirin 324 mg orally, CBC, CMP, PT/INR, troponin level, BNP and twelve-lead EKG. We also ordered a chest x-ray. 08/04/23 11:22 I interpreted the patient's laboratory data results. There is no evidence of any acute, emergent medical issue based on her laboratory data results. The chest x-ray was interpreted by the radiologist and I reviewed the impression. There is no evidence of any acute cardiopulmonary process. , This patient has nonspecific chest pain. We will refer her back to her primary care provider and control director for further evaluation and management. Blood Culture(s) Obtained: No Antibiotics given: No Counseled pt/family regarding: lab results, diagnosis, need for follow-up, rad results Medical Desision Making - Independent Historian Additional History obtained from: Family - Diagnostic Testing Diagnostic test were ordered, analyzed, and reviewed by me: Yes Radiological Interpretation: Reviewed by me, Teleradiologist Report - Risk of complications Minimal Risk: Minimal risk of morbidity - Departure Departure Disposition: Home Clinical Impression: Nonspecific chest pain Condition: Stable Critical Care Time: No Referrals: ASIA ESCOBAR [Primary Care Provider] - Follow up/PCP as directed Additional Instructions: Take your medication as prescribed. Call your primary care provider and control director today to make a follow-up appointment in the next 3 to 5 days.
[2023-08-04 10:11] VITALS: TEMP 96.9
[2023-08-04] MEDS ORDERED: BABY ASPIRIN 81 MG CHEW ONE (10:24)
[2023-08-04] MEDS: BABY ASPIRIN 81 MG CHEW PO ONE (10:25)
[2023-08-04 10:34] LABS: Absolute Neutrophil Ct (ANC) 4.81 x10^3/uL (1.4-6.9); BASOPHIL % 0.5 % (0.0-0.4); Basophil (Absolute #) 0.04 x10^3/uL (0-0.4); Hematocrit 42.1 % (35-47); Hemoglobin 12.8 g/dL (12.0-16.0); IMMATURE GRAN # 0.03 x10^3u/L (0.00-0.03); IMMATURE GRAN % 0.4 % (0.00-0.4); Lymphocyte (Absolute #) 2.19 x10^3/uL (1.0-4.6); Lymphocytes % 27.6 % (24.0-44.0); Mean Cell Volume 90.9 fL (78-100); Mean Corpuscular Hemoglobin 27.6 pg (26-32); Mean Corpuscular Hgb Concent. 30.4 g/dL (32-36); Mean Platelet Volume 10.2 fL (7.5-11.0); Monocyte (Absolute #) 0.46 x10^3/uL (0.0-1.3); Monocytes % 5.8 % (0.0-12.0); Neutrophil % 60.7 % (36.0-66.0); Platelet Count 200 x10^3/uL (150-450); Red Blood Count 4.63 x10^6/uL (4.1-5.4); Red Cell Distribution Width 13.5 % (11.5-14.0); White Blood Count 7.9 x10^3/uL (4.0-10.5)
--- NOTE | 2023-08-04 10:48 | XRAY ---
Indication: Chest pain. Comparison: June 27, 2023 Portable chest remains inflated and clear. Heart not enlarged. Bony thorax intact again with mild degenerative changes. Impression: Continued nonacute chest.
[2023-08-04 10:53] LABS: INR 0.97 (0.8-3.0); PROTIME 10.6 SECONDS (9.4-12.5)
[2023-08-04 11:01] LABS: ALBUMIN 4.5 g/dL (3.5-5.0); ANION GAP 11.6 MEQ/L (5-15); BILIRUBIN,TOTAL 0.7 mg/dL (0.2-1.3); Calcium 9.3 mg/dL (8.4-10.2); Creatinine 1 0.67 mg/dL (0.52-1.04); NT PRO BNPII 89.5 pg/mL (<300); Slide Review 1 YES; Total Protein 7.9 g/dL (6.3-8.2)
[2023-08-04 11:07] VITALS: BP 155/67; PULSE 61; RESP 17; O2SAT 98
== END 2023-08-04 11:39 | disposition home or self-care (01) ==
LOC: ED 09:57
DX: R07.9 Chest pain, unspecified (principal); K30 Functional dyspepsia; I10 Essential (primary) hypertension; E11.9 Type 2 diabetes mellitus without complications; Z79.02 Long term (current) use of antithrombotics/antiplatelets; Z79.899 Other long term (current) drug therapy
CPT/HCPCS: 36415; 71045; 80053; 83880; 84484; 85025; 85610; 93005; 93041; 94760; 99284; A9270-GY

== ENCOUNTER 2024-01-10 15:19 | Emergency (ER) | payer MEDICARE ==
[2024-01-10 15:30] VITALS: RESP 18; TEMP 97.2
[2024-01-10] MEDS ORDERED: CLEOCIN 150 MG CAPSULE ONE (15:38)
[2024-01-10] MEDS: CLEOCIN 150 MG CAPSULE PO ONE (15:38)
--- NOTE | 2024-01-10 15:38 | ERPHSYRPT ---
- History of Present Illness Time Seen by Provider: 01/10/24 15:36 Source: patient Exam Limitations: no limitations Patient Subjective Stated Complaint: PT states "I got a piece of glass in my right foot in my heel. I am a diabetic and I have an appointment with Dr. Manjarrez on but I was not sure if waiting two more days was ok.:" Triage Nursing Assessment: PT presented alert and oriented X 3, skin wpd. Pt ambulates with a limp. PT has small puncture wound noted to right heel. Tender to touch. PT has no other complaints. Physician History: 73-year-old female presents to emergency department for antibiotics. Patient states she has glass in her right heel. Patient stepped on glass on January 05, 4 days ago. Patient currently has an appointment with podiatry. However in light of her diabetes patient concerned for possible infection. No trauma no fever. Pain described as an ache that is localized. Pain worse with weightbearing pain improved with rest. Patient otherwise feels well. She voices no other complaints or concerns at this time. Portions of this note were created with voice recognition technology. There may be grammatical, spelling, punctuation or sound alike errors Timing/Duration: day(s) Severity: moderate (4 days ago) Modifying Factors: Improves With: nothing Associated Symptoms: denies symptoms Allergies/Adverse Reactions: Penicillins Allergy (Unknown, Verified 08/04/23 10:12) Home Medications: Aspirin EC 81 mg [Ecotrin 81 mg] 1 tab PO DAILY 10/26/22 [History] Clopidogrel Bisulfate [PLAVIX Tablet] 1 tab PO DAILY 08/04/23 [History] Escitalopram Oxalate [Lexapro] 20 mg PO DAILY 08/04/23 [History] Meclizine HCl 25 mg [Antivert 25 mg] 1 tab PO TID 08/04/23 [History] Metoprolol Succinate 100 mg [Toprol Xl 100 MG] 1 tab PO DAILY 08/04/23 [History] Hx Tetanus, Diphtheria Vaccination/Date Given: No Hx Influenza Vaccination/Date Given: Yes Hx Pneumococcal Vaccination/Date Given: Yes Immunizations Up to Date: No Travel Risk - International Travel Have you traveled outside of the country in past 3 weeks: No - Emerging Infectious Disease Are you exhibiting symptoms associated with any current EIDs: No - Review of Systems Constitutional: No Symptoms, No Fever, No Chills Eyes: No Symptoms Ears, Nose, & Throat: No Symptoms Respiratory: No Symptoms, No Cough, No Dyspnea Cardiac: No Symptoms, No Chest Pain, No Edema, No Syncope Abdominal/Gastrointestinal: No Symptoms, No Abdominal Pain, No Nausea, No Vomiting, No Diarrhea Genitourinary Symptoms: No Symptoms, No Dysuria Musculoskeletal: No Symptoms, No Back Pain, No Neck Pain Skin: No Symptoms, No Rash Neurological: No Symptoms, No Dizziness, No Focal Weakness, No Sensory Changes Psychological: No Symptoms Endocrine: No Symptoms Hematologic/Lymphatic: No Symptoms Immunological/Allergic: No Symptoms All Other Systems: Reviewed and Negative - Past Medical History Pertinent Past Medical History: Yes Neurological History: No Pertinent History ENT History: No Pertinent History Cardiac History: Hypertension, Other Respiratory History: Asthma Endocrine Medical History: Diabetes Type II Musculoskeletal History: Arthritis GI Medical History: Gallbladder Disease History: No Pertinent History Psycho-Social History: Depression, Anxiety Female Reproductive Disorders: No Pertinent History Other Medical History: INNER EAR, 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 - Past Surgical History Past Surgical History: Yes Neuro Surgical History: No Pertinent History Cardiac: Cardiac Catheterization Respiratory: No Pertinent History Gastrointestinal: Cholecystectomy Genitourinary: No Pertinent History Musculoskeletal: No Pertinent History Female Surgical History: Section, Dilation & Curettage Other Surgical History: uterine biopsy - Social History Smoking Status: Never smoker Exposure to second hand smoke: No Drug Use: none Patient Lives Alone: Yes - Social Determinants of Health Will the patient participate in the screening: Declined to provide - Nursing Vital Signs Nursing Vital Signs: Initial Vital Signs Temperature 97.2 F 01/10/24 15:25 Pulse Rate 72 01/10/24 15:25 Respiratory Rate 18 01/10/24 15:25 Blood Pressure 149/80 01/10/24 15:25 O2 Sat by Pulse Oximetry 99 01/10/24 15:25 Pain Scale Pain Intensity 9 - Physical Exam General Appearance: no apparent distress, alert Eye Exam: PERRL/EOMI, eyes nml inspection Ears, Nose, Throat Exam: normal ENT inspection, TMs normal, pharynx normal, moist mucous membranes Neck Exam: normal inspection, non-tender, supple, full range of motion Respiratory Exam: normal breath sounds, lungs clear, airway intact, No respiratory distress Cardiovascular Exam: regular rate/rhythm, normal heart sounds, normal peripheral pulses Gastrointestinal/Abdomen Exam: soft, normal bowel sounds, No tenderness, No mass Back Exam: normal inspection, normal range of motion, No CVA tenderness, No vertebral tenderness Extremity Exam: normal inspection, normal range of motion, pelvis stable, tenderness (The involved extremities neurovascular tact distally compartments are soft cap refill less than 2 seconds. NO Lymphangitis), other (There is a palpable foreign body at the heel of the right foot. Patient states it is a glass) Neurologic Exam: alert, oriented x 3, cooperative, normal mood/affect, sensation nml, No motor deficits Skin Exam: normal color, warm, dry, No rash Lymphatic Exam: No adenopathy SpO2 Interpretation: normal SpO2: 99 O2 Delivery: Room Air - Course Nursing assessment & vital signs reviewed: Yes - Progress Progress: improved Progress Note: Patient reassessed she is well. We intended to give patient Bactrim however it interacts with her spironolactone. Patient is allergic to penicillin so penicillin-based antibiotics are not an option. We want to cover MRSA with an oral antibiotic that is not Bactrim so clindamycin administered. Clindamycin does not react with any of her home meds. Patient currently has a follow-up appointment with Dr. Manjarrez on . Patient received an oral dose of clindamycin in our ED. [facility] Patient will see podiatry on as scheduled. No indication for further workup. The foreign body and her right heel will likely require a minor surgical procedure for removal. Portions of this note were created with voice recognition technology. There may be grammatical, spelling, punctuation or sound alike errors Complexity problem addressed is moderate acute complicated. No critical care time. Complex of data reviewed and analyzed is none. Diagnosis made based on history and physical exam. No specialized testing ordered. Risk of complication and or risk of morbidity/mortality patient management is moderate. Vital stable. Time spent to discharge patient is approximately 10 minutes. Plan of care established for shared decision making. No social determinants of health present impede follow-up. Portions of this note were created with voice recognition technology. There may be grammatical, spelling, punctuation or sound alike errors 01/10/24 15:42 Counseled pt/family regarding: diagnosis, need for follow-up - Departure Departure Disposition: Home Clinical Impression: Foreign body in foot, right Condition: Stable Critical Care Time: No Referrals: ASIA SANTIAGO [Primary Care Provider] - Follow up/PCP as directed Additional Instructions: Discharge/Care Plan MORIS ADAMS was seen on 01/10/24 in the Emergency Room. The patient was counseled regarding Diagnosis,Lab results, Imaging studies, need for follow up and when to return to the Emergency Room. Prescriptions given: Discharge Note I have spoken with the patient and/or caregivers. I have explained the patient's condition, diagnosis and treatment plan based on the information available to me at this time. I have answered the patient's and/or caregiver's questions and addressed any concerns. The patient and/or caregivers have as good understanding of the patient's diagnosis, condition and treatment plan as can be expected at this point. The vital signs have been stable. The patient's condition is stable and appropriate for discharge from the emergency department. The patient will pursue further outpatient evaluation with the primary care physician or other designated or consulting physician as outlined in the discharge instructions. The patient and/or caregivers are agreeable to this plan of care and follow-up instructions have been explained in detail. The patient and/or caregivers have received these instruction. The patient/and or caregivers are aware that any significant change in condition or worsening of symptoms should prompt an immediate return to this or the closest emergency department or call 911. Prescriptions: Clindamycin HCl 150 mg [Cleocin 150 mg Capsule] 2 cap PO QID 7 Days #56 cap
[2024-01-10 15:48] VITALS: BP 150/59; PULSE 88; O2SAT 96
== END 2024-01-10 15:49 | disposition home or self-care (01) ==
LOC: ED 15:19
DX: M79.5 Residual foreign body in soft tissue (principal); I10 Essential (primary) hypertension; E11.9 Type 2 diabetes mellitus without complications; Z79.02 Long term (current) use of antithrombotics/antiplatelets; Z79.899 Other long term (current) drug therapy
CPT/HCPCS: 99282; A9270-GY

== ENCOUNTER 2024-02-21 15:25 | Emergency (ER) | payer MEDICARE, OTHER ==
[2024-02-21 15:42] VITALS: BP 151/75; PULSE 80; RESP 16; O2SAT 96
--- NOTE | 2024-02-21 16:05 | ERPHSYRPT ---
- History of Present Illness Time Seen by Provider: 02/21/24 16:01 Source: patient Exam Limitations: no limitations Patient Subjective Stated Complaint: fall Triage Nursing Assessment: patient stated that she had a ground level fall yesterday and is now experiencing pain at the right arm, shoulder, hip, and bilateral knees. patient is requesting xrays of painful areas to rule out fractures Physician History: 73-year-old female presents to our ED as a referral from her primary care doctor's office for x-rays. Patient reports that she tripped and fell yesterday from ground-level. Patient landed on her right side. Patient now complains of right shoulder pain right hip pain and bilateral knee pain. No other injuries reported. No BHT or LOC. Cervical spine cleared clinically. The fall was mechanical. Patient states her foot got caught on the ground causing her to fall. The fall was not associated with any neuro cardiovascular symptomology. No chest pain or shortness of breath. No nausea vomiting or diaphoresis. No numbness tingling or weakness. Patient otherwise feels well at this time. She voices no other complaints or concerns at this time. Portions of this note were created with voice recognition technology. There may be grammatical, spelling, punctuation or sound alike errors Timing/Duration: yesterday Severity: moderate Modifying Factors: Improves With: nothing Associated Symptoms: denies symptoms Allergies/Adverse Reactions: Penicillins Allergy (Unknown, Verified 02/21/24 15:42) Home Medications: Clopidogrel Bisulfate [PLAVIX Tablet] 1 tab PO DAILY 08/04/23 [History] Escitalopram Oxalate [Lexapro] 20 mg PO DAILY 08/04/23 [History] Meclizine HCl 25 mg [Antivert 25 mg] 1 tab PO TID 08/04/23 [History] Metoprolol Succinate 100 mg [Toprol Xl 100 MG] 1 tab PO DAILY 08/04/23 [History] Atorvastatin Calcium 20 mg PO HS 02/21/24 [History] Furosemide 20 mg [Lasix 20 mg] 20 mg PO DAILY 02/21/24 [History] Gabapentin 100 mg PO DAILY 02/21/24 [History] Semaglutide [Ozempic] 1 mg SQ WEEKLY 02/21/24 [History] diazePAM [Diazepam] 5 mg PO DAILY 02/21/24 [History] Hx Tetanus, Diphtheria Vaccination/Date Given: No Hx Influenza Vaccination/Date Given: Yes Hx Pneumococcal Vaccination/Date Given: Yes Travel Risk - International Travel Have you traveled outside of the country in past 3 weeks: No - Emerging Infectious Disease Are you exhibiting symptoms associated with any current EIDs: No - Review of Systems Constitutional: No Symptoms, No Fever, No Chills Eyes: No Symptoms Ears, Nose, & Throat: No Symptoms Respiratory: No Symptoms, No Cough, No Dyspnea Cardiac: No Symptoms, No Chest Pain, No Edema, No Syncope Abdominal/Gastrointestinal: No Symptoms, No Abdominal Pain, No Nausea, No Vomiting, No Diarrhea Genitourinary Symptoms: No Symptoms, No Dysuria Musculoskeletal: No Symptoms, No Back Pain, No Neck Pain Skin: No Symptoms, No Rash Neurological: No Symptoms, No Dizziness, No Focal Weakness, No Sensory Changes Psychological: No Symptoms Endocrine: No Symptoms Hematologic/Lymphatic: No Symptoms Immunological/Allergic: No Symptoms All Other Systems: Reviewed and Negative - Past Medical History Pertinent Past Medical History: Yes Neurological History: No Pertinent History ENT History: No Pertinent History Cardiac History: Hypertension, Other Respiratory History: Asthma Endocrine Medical History: Diabetes Type II Musculoskeletal History: Arthritis GI Medical History: Gallbladder Disease History: No Pertinent History Psycho-Social History: Depression, Anxiety Female Reproductive Disorders: No Pertinent History Other Medical History: INNER EAR, 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 - Past Surgical History Past Surgical History: Yes Neuro Surgical History: No Pertinent History Cardiac: Cardiac Catheterization Respiratory: No Pertinent History Gastrointestinal: Cholecystectomy Genitourinary: No Pertinent History Musculoskeletal: No Pertinent History Female Surgical History: Section, Dilation & Curettage Other Surgical History: uterine biopsy - Social History Smoking Status: Never smoker Exposure to second hand smoke: No Drug Use: none Patient Lives Alone: Yes - Social Determinants of Health Will the patient participate in the screening: Declined to provide - Nursing Vital Signs Nursing Vital Signs: Initial Vital Signs Pulse Rate 80 02/21/24 15:39 Respiratory Rate 16 02/21/24 15:39 Blood Pressure 151/75 02/21/24 15:39 O2 Sat by Pulse Oximetry 96 02/21/24 15:39 Pain Scale Pain Intensity 8 - Physical Exam General Appearance: no apparent distress, alert Eye Exam: PERRL/EOMI, eyes nml inspection Ears, Nose, Throat Exam: normal ENT inspection, TMs normal, pharynx normal, moist mucous membranes Neck Exam: normal inspection, non-tender, supple, full range of motion Respiratory Exam: normal breath sounds, lungs clear, airway intact, No respiratory distress Cardiovascular Exam: regular rate/rhythm, normal heart sounds, normal peripheral pulses Gastrointestinal/Abdomen Exam: soft, normal bowel sounds, No tenderness, No mass Back Exam: normal inspection, normal range of motion, No CVA tenderness, No vertebral tenderness Extremity Exam: normal inspection, normal range of motion, pelvis stable, other (All 4 extremities are neurovascular tact distally compartments are soft cap refill less than 2 seconds. Tenderness to palpation right shoulder. No tenderness palpation of right hip or bilateral knees) Neurologic Exam: alert, oriented x 3, cooperative, normal mood/affect, sensation nml, No motor deficits Skin Exam: normal color, warm, dry, No rash Lymphatic Exam: No adenopathy SpO2 Interpretation: normal SpO2: 96 O2 Delivery: Room Air - Course Nursing assessment & vital signs reviewed: Yes - Radiology Exams Shoulder X-ray Interpretation: Teleradiologist Report (New nondisplaced fracture greater tuberosity humeral head) Hip X-ray Interpretation: Teleradiologist Report (No acute findings) Knee X-ray Interpretation: Teleradiologist Report (No acute findings.) Other X-ray Interpretation: Teleradiologist Report (Left knee no acute findings) Ordered Tests: Active Orders 24 hr Category Date Time Status HIP UNI (2V) INCL PEL IF DONE Stat Exams 02/21/24 15:42 Completed KNEE (1 OR 2 VIEW) Stat Exams 02/21/24 15:40 Completed KNEE (1 OR 2 VIEW) Stat Exams 02/21/24 15:41 Completed SHOULDER Stat Exams 02/21/24 15:42 Completed Medication Summary Discontinued Medications Generic Name Dose Route Start Last Admin Trade Name Freq PRN Reason Stop Dose Admin Ketorolac Tromethamine 30 mg 02/21/24 16:04 02/21/24 16:09 Ketorolac Tromethamine 30 Mg/Ml Inj IM 02/21/24 16:05 30 mg STAT ONE Administration Ketorolac Tromethamine Confirm 02/21/24 16:06 Ketorolac Tromethamine 30 Mg/Ml Inj Administered 02/21/24 16:07 Dose 30 mg .ROUTE .STK-MED ONE - Progress Progress: improved Progress Note: 73-year-old female presents to our ED for evaluation status post fall. Patient complains of pain to her right hip right shoulder and bilateral knees. Physical exam reveals tenderness to the right shoulder. No pain to palpation at the right hip or knees. All extremities neurovascular intact distally compartments are soft cap refill less than 2 seconds. X-ray of the right shoulder reveals a nondisplaced fracture of the greater tuberosity of the right humeral head. Remaining x-rays show chronic changes. Patient received Toradol for pain control. Right upper extremity sling placed. Patient referred to the orthopedic clinic. Patient received 4 [place] pills from our ED. Additional pills per orthopedics. Patient otherwise feels well. She voices no other complaints or concerns at this time Portions of this note were created with voice recognition technology. There may be grammatical, spelling, punctuation or sound alike errors Complexity problem addressed is moderate acute complicated. No critical care ti me. Complex of data reviewed and analyzed is moderate. Test ordered chest reviewed results analyzed and correlated clinically with history and physical exam. Risk of complication and or risk of morbidity/mortality patient management is moderate. Patient was discharged home with 4 [place] pills. Vital stable. Time spent to discharge patient approximately 20 minutes. Plan of care established for shared decision making. No social determinants of health present impede follow-up. Portions of this note were created with voice recognition technology. There may be grammatical, spelling, punctuation or sound alike errors 02/21/24 16:54 Counseled pt/family regarding: diagnosis, need for follow-up, rad results - Departure Departure Disposition: Home Clinical Impression: Fall, Osteopenia, Joint arthritis, Humeral head fracture Condition: Stable Critical Care Time: No Referrals: ASIA SANTIAGO [Primary Care Provider] - Follow up/PCP as directed Additional Instructions: Discharge/Care Plan MORIS ADAMS was seen on 02/21/24 in the Emergency Room. The patient was counseled regarding Diagnosis,Lab results, Imaging studies, need for follow up and when to return to the Emergency Room. Prescriptions given: Discharge Note I have spoken with the patient and/or caregivers. I have explained the patient's condition, diagnosis and treatment plan based on the information available to me at this time. I have answered the patient's and/or caregiver's questions and addressed any concerns. The patient and/or caregivers have as good understanding of the patient's diagnosis, condition and treatment plan as can be expected at this point. The vital signs have been stable. The patient's condition is stable and appropriate for discharge from the emergency department. The patient will pursue further outpatient evaluation with the primary care physician or other designated or consulting physician as outlined in the discharge instructions. The patient and/or caregivers are agreeable to this plan of care and follow-up instructions have been explained in detail. The patient and/or caregivers have received these instruction. The patient/and or caregivers are aware that any significant change in condition or worsening of symptoms should prompt an immediate return to this or the closest emergency department or call 911. Outpatient Orders: Ortho Referral Time Frame: 1 Day, Facility: [facility], Location: [facility]
[2024-02-21] MEDS ORDERED: TORAdol 30 mg Injection ONE (16:06)
[2024-02-21] MEDS: TORAdol 30 mg Injection IM ONE (16:09)
--- NOTE | 2024-02-21 16:28 | XRAY ---
Indication: Pain following fall. Comparison: November 14, 2019 3 view right shoulder demonstrates new nondisplaced fracture greater tuberosity humeral head. Stable osteopenia and moderate AC degenerative changes. No other bony, articular, or soft tissue abnormalities.
--- NOTE | 2024-02-21 16:30 | XRAY ---
Indication: Pain following fall. Comparison: None AP pelvis and 2 view right hip obtained using portable technique. There is osteopenia and mild lower lumbar degenerative spondylosis. No other bony, articular, or soft tissue abnormalities.
--- NOTE | 2024-02-21 16:32 | XRAY ---
Indication: Pain following fall. Comparison: July 24 2019 AP/lateral left knee now demonstrates minimal/mild tricompartmental degenerative changes greatest medial compartment. Again incidental osteopenia, spurring patella/tibial tuberosity, and tiny lateral condyle bone island. No other bony, articular, or soft tissue abnormalities.
--- NOTE | 2024-02-21 16:34 | XRAY ---
Indication: Pain following fall. Comparison: July 24, 2019 AP/lateral right knee again demonstrates osteopenia, tiny spurring patella/tibial tuberosity, and benign soft tissue calcifications anterior to tibia. No new/acute abnormalities.
[2024-02-21] MEDS ORDERED: NORCO 5/325 MG ONE (17:05)
[2024-02-21] MEDS: NORCO 5/325 MG PO ONE (17:06)
== END 2024-02-21 17:15 | disposition home or self-care (01) ==
LOC: ED 15:25
DX: S42.254A Nondisplaced fracture of greater tuberosity of right humerus, initial encounter for closed fracture (principal); W01.0XXA Fall on same level from slipping, tripping and stumbling without subsequent striking against object, initial encounter; M85.80 Other specified disorders of bone density and structure, unspecified site; M19.90 Unspecified osteoarthritis, unspecified site; M25.551 Pain in right hip; M25.561 Pain in right knee; M25.562 Pain in left knee; I10 Essential (primary) hypertension; E11.9 Type 2 diabetes mellitus without complications; Z79.02 Long term (current) use of antithrombotics/antiplatelets; Z79.85 Long-term (current) use of injectable non-insulin antidiabetic drugs; Z79.899 Other long term (current) drug therapy
CPT/HCPCS: 73030; 73502; 73560; 96372; 99283; J1885; A9270-GY

== ENCOUNTER 2024-03-01 16:46 | Emergency (ER) | payer MEDICARE, OTHER ==
[2024-03-01 19:40] VITALS: BP 143/67; PULSE 70; RESP 20; TEMP 97.3; O2SAT 99
--- NOTE | 2024-03-01 21:13 | ERPHSYRPT ---
- History of Present Illness Time Seen by Provider: 03/01/24 20:07 Source: patient, family Exam Limitations: no limitations Patient Subjective Stated Complaint: Fall- shoulder pain Triage Nursing Assessment: Patient brought back to ED per w/c and sat in w/c for triage. Patient's skin pink, warm and dry. Patient has fx to right shoulder and is being treated by [facility] in [place]. Patient states she tripped on a curb today and landed on right right shoulder/arm. Patient complains of right shoulder pain 02/10. Patient just concerned about re injuring her right shoulder. Physician History: 73-year-old female with multiple medical problems including hypertension, hyperlipidemia, diabetes mellitus, obesity who had a recent fall with fracture greater tuberosity of humeral head, has seen orthopedist at [place] [facility] presented in this ER again after she was getting out of the car and fell on her right elbow/shoulder prior to arrival. She did not hit her head. Patient complaining of pain all over her right upper extremity with movements and palpation. Patient is worried about having another fracture. No chest pain or new back pain reported Patient has some tenderness in humeral head area and tenderness in the elbow. X-rays of right shoulder reviewed by me did not show any new fracture. X-rays of right elbow questionable lateral epicondyles avulsion fracture. Negative x- rays of the hand wrist forearm. X-rays are reviewed by me, official reports are pending. Recommended continue with the brace for the shoulder and will place elbow in the sling which patient does have at home. She is offered pain medication which she declined. She has no limitation range of motion. Recommended continue with pain medication and outpatient orthopedics follow-up. It was a clear mechanical fall, do not think needs any other workup and is being discharged. Allergies/Adverse Reactions: Penicillins Allergy (Unknown, Verified 03/01/24 19:18) Home Medications: Clopidogrel Bisulfate [PLAVIX Tablet] 1 tab PO DAILY 08/04/23 [History] Escitalopram Oxalate [Lexapro] 20 mg PO DAILY 08/04/23 [History] Meclizine HCl 25 mg [Antivert 25 mg] 1 tab PO TID 08/04/23 [History] Metoprolol Succinate 100 mg [Toprol Xl 100 MG] 1 tab PO DAILY 08/04/23 [History] Atorvastatin Calcium 20 mg PO HS 02/21/24 [History] Furosemide 20 mg [Lasix 20 mg] 20 mg PO DAILY 02/21/24 [History] Gabapentin 100 mg PO DAILY 02/21/24 [History] Semaglutide [Ozempic] 1 mg SQ WEEKLY 02/21/24 [History] diazePAM [Diazepam] 5 mg PO DAILY 02/21/24 [History] Hx Tetanus, Diphtheria Vaccination/Date Given: No Hx Influenza Vaccination/Date Given: Yes Hx Pneumococcal Vaccination/Date Given: Yes Immunizations Up to Date: Yes Travel Risk - International Travel Have you traveled outside of the country in past 3 weeks: No - Emerging Infectious Disease Are you exhibiting symptoms associated with any current EIDs: No - Review of Systems Constitutional: No Symptoms Ears, Nose, & Throat: No Symptoms Respiratory: No Symptoms Cardiac: No Symptoms Genitourinary Symptoms: No Symptoms Musculoskeletal: Arthralgias, Fall, Injury Skin: No Symptoms Neurological: No Symptoms Hematologic/Lymphatic: No Symptoms - Past Medical History Pertinent Past Medical History: Yes Neurological History: No Pertinent History ENT History: No Pertinent History Cardiac History: Hypertension, Other Respiratory History: Asthma Endocrine Medical History: Diabetes Type II Musculoskeletal History: Arthritis GI Medical History: Gallbladder Disease History: No Pertinent History Psycho-Social History: Depression, Anxiety Female Reproductive Disorders: No Pertinent History Other Medical History: INNER EAR, 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 - Past Surgical History Past Surgical History: Yes Neuro Surgical History: No Pertinent History Cardiac: Cardiac Catheterization Respiratory: No Pertinent History Gastrointestinal: Cholecystectomy Genitourinary: No Pertinent History Musculoskeletal: No Pertinent History Female Surgical History: Section, Dilation & Curettage Other Surgical History: uterine biopsy - Social History Smoking Status: Never smoker Exposure to second hand smoke: No Drug Use: none Patient Lives Alone: Yes - Social Determinants of Health Will the patient participate in the screening: Declined to provide - Nursing Vital Signs Nursing Vital Signs: Initial Vital Signs Temperature 97.3 F 03/01/24 19:34 Pulse Rate 70 03/01/24 19:34 Respiratory Rate 20 03/01/24 19:34 Blood Pressure 143/67 03/01/24 19:34 O2 Sat by Pulse Oximetry 99 03/01/24 19:34 Pain Scale Pain Intensity 8 - Physical Exam General Appearance: no apparent distress Eyes, Ears, Nose, Throat Exam: normal ENT inspection Neck Exam: normal inspection, full range of motion Cardiovascular/Respiratory Exam: chest non-tender, normal breath sounds, regular rate/rhythm Shoulder Exam: bone tenderness, limited ROM, soft tissue tenderness Elbow/Forearm Exam: bone tenderness (Lateral epicondyles), limited ROM, soft tissue tenderness, swelling Wrist Exam: normal inspection, non-tender, no evidence of injury, normal ROM Hand Exam: normal inspection, non-tender, no evidence of injury, normal ROM Neuro/Tendon Exam: normal sensation, normal motor functions, normal tendon functions Mental Status Exam: alert, oriented x 3, cooperative Skin Exam: normal color SpO2 Interpretation: normal SpO2: 99 O2 Delivery: Room Air - Progress Progress: pain not gone completely Progress Note: 03/01/24 21:14 73-year-old female with multiple medical problems including hypertension, hyperlipidemia, diabetes mellitus, obesity who had a recent fall with fracture greater tuberosity of humeral head, has seen orthopedist at [facility] presented in this ER again after she was getting out of the car and fell on her right elbow/shoulder prior to arrival. She did not hit her head. Patient complaining of pain all over her right upper extremity with movements and palpation. Patient is worried about having another fracture. No chest pain or new back pain reported Patient has some tenderness in humeral head area and tenderness in the elbow. X-rays of right shoulder reviewed by me did not show any new fracture. X-rays of right elbow questionable lateral epicondyles avulsion fracture. Negative x- rays of the hand wrist forearm. X-rays are reviewed by me, official reports are pending. Recommended continue with the brace for the shoulder and will place elbow in the sling which patient does have at home. She is offered pain medication which she declined. She has no limitation range of motion. Recommended continue with pain medication and outpatient orthopedics follow-up. It was a clear mechanical fall, do not think needs any other workup and is being discharged. Counseled pt/family regarding: diagnosis, need for follow-up, rad results Medical Desision Making - Independent Historian Additional History obtained from: Child - Diagnostic Testing Diagnostic test were ordered, analyzed, and reviewed by me: Yes Radiological Interpretation: Interpreted by me, Reviewed by me - Departure Departure Disposition: Home Clinical Impression: Elbow contusion, Shoulder contusion Condition: Stable Critical Care Time: No Referrals: ASIA SANTIAGO [Primary Care Provider] - Follow up with PCP 1 day VERONICA OLIVER MD [ACTIVE STAFF] - Follow up/PCP as directed (Call for appointment) Instructions: Elbow Fracture, Adult ED Additional Instructions: Intermittent ice application. Follow-up with orthopedic surgery for reevaluation. Avoid exertional activities. Return to ER for any worsening.
--- NOTE | 2024-03-02 09:16 | XRAY ---
Indication: Status post fall. Comparison: None 3 view right elbow demonstrate osteopenia and tiny spurring olecranon process/lateral epicondyle. No other bony, articular, or soft tissue abnormalities.
--- NOTE | 2024-03-02 09:16 | XRAY ---
Indication: Status post fall. Comparison: February 21, 2024 3 view right shoulder unchanged again demonstrating nondisplaced fracture greater tuberosity humeral head, osteopenia, and moderate AC degenerative changes. No new bony, articular, or soft tissue abnormalities.
--- NOTE | 2024-03-02 09:17 | XRAY ---
Indication: Status post fall. Comparison: None 3 view right wrist demonstrates osteopenia and mild 1st metacarpal multangular degenerative changes. No other bony, articular, or soft tissue abnormalities.
--- NOTE | 2024-03-02 09:18 | XRAY ---
Indication: Status post fall. Comparison: None 2 view right forearm demonstrates osteopenia and small spurring olecranon process/lateral epicondyle. No other bony, articular, or soft tissue abnormalities.
--- NOTE | 2024-03-02 09:19 | XRAY ---
Indication: Status post fall. Comparison: None 3 view right hand demonstrates osteopenia, minimal/mild degenerative changes all IP/MCP joints, and mild 1st metacarpal multangular degenerative changes. No other bony, articular, or soft tissue abnormalities.
== END 2024-03-01 21:31 | disposition home or self-care (01) ==
LOC: ED 16:46
DX: S50.01XA Contusion of right elbow, initial encounter (principal); S40.011A Contusion of right shoulder, initial encounter; W01.0XXA Fall on same level from slipping, tripping and stumbling without subsequent striking against object, initial encounter; M79.601 Pain in right arm; I10 Essential (primary) hypertension; E11.9 Type 2 diabetes mellitus without complications; Z79.02 Long term (current) use of antithrombotics/antiplatelets; Z79.85 Long-term (current) use of injectable non-insulin antidiabetic drugs; Z79.899 Other long term (current) drug therapy
CPT/HCPCS: 73030; 73080; 73090; 73110; 73130; 99282

== ENCOUNTER 2024-07-09 16:08 | Emergency (ER) | payer MEDICARE, OTHER ==
[2024-07-09 16:17] VITALS: BP 152/74; PULSE 78; RESP 20; TEMP 97.5; O2SAT 97
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
== END 2024-07-09 16:50 | disposition home or self-care (01) ==
LOC: ED 16:08
DX: Z04.1 Encounter for examination and observation following transport accident (principal); R20.2 Paresthesia of skin; E78.5 Hyperlipidemia, unspecified; I10 Essential (primary) hypertension; E11.9 Type 2 diabetes mellitus without complications; Z79.02 Long term (current) use of antithrombotics/antiplatelets; Z79.85 Long-term (current) use of injectable non-insulin antidiabetic drugs; Z79.899 Other long term (current) drug therapy
CPT/HCPCS: 99284